=== PATIENT | female | born 1945 | race Caucasian/White ===

== ENCOUNTER 2018-05-24 21:41 | Inpatient (IN) | payer OTHER, MEDICAID ==
[~2018-05-24] VITALS: Ht 165.1 cm; Wt 63.0 kg
[2018-05-24 21:46] VITALS: BP 121/70
[2018-05-24] MEDS ORDERED: LEVAQUIN 500 M500 M2 PO (21:55)
[2018-05-24] MEDS ORDERED: TESSALON PERLE100 MG PO (21:55)
[2018-05-24] MEDS ORDERED: ADVAIR 250-501 EACH INH (22:00)
[2018-05-24] MEDS ORDERED: ASPIR 8181 MG PO (22:22)
[2018-05-24] MEDS ORDERED: ALBUTEROL2.5 MG/31 INH (22:22)
[2018-05-24] MEDS ORDERED: CARVEDILOL3.125 MG PO (22:23)
[2018-05-24] MEDS ORDERED: CEFUROXIME250 MG PO (22:28)
[2018-05-24] MEDS ORDERED: BENTYL 10 MG CA10 M1 PO (22:28)
[2018-05-24] MEDS ORDERED: DOXYCYCLINE 10100 MG PO (22:29)
[2018-05-24 22:30] LABS: ABSOLUTE BASOPHILS 0.1 thou/uL (0.0-0.2); ABSOLUTE EOSINOPHILS 0.2 thou/uL (0.0-0.7); ABSOLUTE LYMPHOCYTES 1.4 thou/uL (0.8-5.3); ABSOLUTE MONOCYTES 0.4 thou/uL (0.0-1.2); BASOPHILS 0.9 %; EOSINOPHILS 2.6 %; HEMATOCRIT 41.2 % (37.0-47.0); LYMPHOCYTES 23.5 %; MCH 29.9 pg (26.0-34.0); MCHC 33.9 g/dL (28.0-37.0); MCV 88.3 fL (80.0-100.0); MONOCYTES 6.9 %; MPV 8.8 fl. (7.2-11.1); NUCLEATED RBCS 0 /100WBC; PLATELET COUNT* 212 thou/uL (150-400); POLYS 66.1 %; RBC 4.67 mil/uL (4.20-5.00); RDW-CV 14.6 % (10.5-14.5)
[2018-05-24] MEDS ORDERED: CYMBALTA30 MG PO (22:30)
[2018-05-24] MEDS ORDERED: DULOXETINE HCL60 MG PO (22:31)
[2018-05-24 22:37] LABS: CALCIUM 8.9 mg/dL (8.5-10.1); CREATININE 0.9 mg/dL (0.6-1.3); POTASSIUM 3.1 mmol/L (3.5-5.1)
[2018-05-24] MEDS ORDERED: METFORMIN HCL500 MG PO (22:38)
[2018-05-24] MEDS ORDERED: ESKALITH CR450 MG PO (22:38)
[2018-05-24] MEDS ORDERED: PRILOSEC 10MG C10 MG PO (22:39)
[2018-05-24] MEDS ORDERED: PREDNISONE 10 M10 MG PO (22:40)
[2018-05-24 22:41] LABS: ALBUMIN 3.4 g/dL (3.4-5.0); MAGNESIUM 1.6 mg/dL (1.8-2.4); TOTAL BILIRUBIN 0.4 mg/dL (<0.1-1.0); TOTAL PROTEIN 7.3 g/dL (6.4-8.2)
[2018-05-24] MEDS ORDERED: VENTOLIN HFA 1818 GM INH (22:41)
[2018-05-24] MEDS ORDERED: AMBIEN 5 MG TABL5 M1 PO (22:42)
[2018-05-24 22:47] LABS: BE -0.4 mmol/L (-2 to +3); HCO3 23.1 mmol/L (22.0-26.0); PCO2 34.1 mmHg (35.0-45.0); pH 7.448 (7.340-7.450)
[2018-05-25] VITALS (8 sets, daily range): BP systolic 125–152; BP diastolic 61–77
[2018-05-25 02:41] LABS: CALCIUM 9.2 mg/dL (8.5-10.1); CREATININE 0.8 mg/dL (0.6-1.3); MAGNESIUM 2.6 mg/dL (1.8-2.4); POTASSIUM 3.8 mmol/L (3.5-5.1)
--- NOTE | 2018-05-25 10:06 | EKG ---
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1945 Requested By: Anatoly Guerrero Order Number: [id number] MD: Cj Melgoza Measurements Intervals [place] Rate: 98 P: 81 IN: 154 QRS: 72 QRSD: 124 T: 219 QT: 373 QTc: 477 Interpretive Statements Sinus tachycardia artifact noted Ventricular bigeminy Nonspecific intraventricular conduction delay Repol abnrm, prob ischemia, anterolateral lds Compared to ECG 05/17/2013 12:26:15 Ventricular premature complex(es) now present Possible ischemia now present Sinus rhythm no longer present Electronically Signed On 05-25-2018 10:06:42 CDT by Cj Melgoza [email or web address] <ELECTRONICALLY SIGNED> By: Cj Melgoza MD, [facility] 05/25/18 1006 58 58 Cj Melgoza MD, [facility] /EPI
[2018-05-25 11:44] LABS: APTT 28.4 Seconds (25.0-31.3); INR 1.1; PROTIME 10.9 Seconds (9.20-11.50)
[2018-05-26 04:00] VITALS: BP 123/66
[2018-05-26 05:14] LABS: HEMATOCRIT 35.3 % (37.0-47.0); HEMOGLOBIN 11.9 gm/dL (12.0-15.0); MCH 29.8 pg (26.0-34.0); MCHC 33.6 g/dL (28.0-37.0); MCV 88.7 fL (80.0-100.0); MPV 8.9 fl. (7.2-11.1); RBC 3.98 mil/uL (4.20-5.00); RDW-CV 14.4 % (10.5-14.5); WBC 10.1 thou/uL (4.0-11.0)
[2018-05-26 05:30] LABS: ALBUMIN 2.9 g/dL (3.4-5.0); CALCIUM 9.2 mg/dL (8.5-10.1); CREATININE 0.8 mg/dL (0.6-1.3); MAGNESIUM 2.2 mg/dL (1.8-2.4); POTASSIUM 4.6 mmol/L (3.5-5.1); TOTAL BILIRUBIN 0.2 mg/dL (<0.1-1.0); TOTAL PROTEIN 5.7 g/dL (6.4-8.2)
[2018-05-26 07:41] VITALS: BP 146/71
--- NOTE | 2018-05-26 10:06 | CON ---
[address] [address] CONSULTATION Name: NISHANT VENTURA Room: [address] IN M.R.#: [id number] Admission: 05/24/18 Attend Phys: Maikel Song MD Discharge: Date of : 45 Report #: [id number] THIS REPORT FOR: //name// CC: Maikel Salazar REASON FOR CONSULTATION: Abnormal CT scan, shortness of breath. HISTORY OF PRESENT ILLNESS: This is a 73-year-old female patient with history of COPD, although she is not on oxygen. She continues to smoke. According to her, she smoked for a long time. She presented to the Emergency Department with progressive shortness of breath of 2 days' duration. However, upon further clarification, she told me she had been short of breath for a while, on and off symptoms, waxing and waning. Not long time ago, she was seen at urgent care for similar symptoms. Also, she told me in the last 5 weeks, she was admitted to different hospital with breathing problems. She continues to smoke. In addition to that, she had progressive weakness, cough, mostly dry without sputum production. She has a background history of breast cancer and she underwent lumpectomy 3 years ago. She does not recall the name of the oncologist. She did not receive chemoradiation and she did not follow since then. For the last 1 year, she had been having large lesions on the left side of the breast, also becoming more indurated and have been progressive for the last 1 year. She denied any back pain, fever, but she reported wheezes. She has no nausea or vomiting, no other complaints. PAST MEDICAL HISTORY: History of left breast cancer status post lumpectomy, history of appendectomy, tonsillectomy, gallbladder removal, history of COPD, history of diabetes mellitus, history of anemia, gout, history of depression and reflux. PAST SURGICAL HISTORY: As above. HOME MEDICATIONS: She was finishing actually a course of levofloxacin. She was on Advair, aspirin, albuterol cysteine at home, doxycycline, metformin, omeprazole, and prednisone. ALLERGIES: TYLENOL, DILTIAZEM, HALDOL, LORATADINE, DARVOCET, AND SUDAFED. SOCIAL HISTORY: Continues to smoke around 4-5 cigarettes per day. She told me she smoked all her life. Does not drink alcohol excessively. Does not abuse drugs. REVIEW OF SYSTEMS: Positive for weakness, cough, shortness of breath, sputum production, although rare. She had no diarrhea, no vomiting, no nausea, no urgency. The rest of the review of system was negative. PHYSICAL EXAMINATION: [place] [address] CONSULTATION Name: NISHANT VENTURA Room: [address] IN M.R.#: [id number] Admission: 05/24/18 Attend Phys: Maikel Song MD Discharge: Date of : 45 Report #: [id number] VITAL SIGNS: On examination, she is on room air, O2 saturation more than 90%, pulse rate of 100, afebrile, blood pressure 150/76. HEENT: Head, normocephalic, atraumatic. Pupils are reactive to light. Not pale, no jaundice. External ears look okay and normal. Oral cavity: Moist mucous membranes. NECK: Supple. CHEST: Diminished air movement bilaterally, especially at the right lung base, no definite wheezes. HEART: S1, S2. ABDOMEN: Benign, soft, lax, nontender. EXTREMITIES: Lower extremity, no edema. No rash. BREAST: On examination, the left breast area post-surgical changes noted, but there is an induration also and skin lesions on the breast tissue and surrounding the area with redness. PSYCHIATRIC: Mood and affect slightly anxious. NEUROLOGIC: Moving all 4 extremities spontaneously. No focal weakness. Her chest x-ray showed bilateral interstitial opacities, signs of edema and bilateral pleural effusion. CT of the chest did not show PE, but demonstrated small pulmonary nodules and moderate right-sided pleural effusion and a small left-sided pleural effusion. IMPRESSION: 1. Dyspnea. 2. Chronic obstructive pulmonary disease exacerbation. 3. Abnormal CT scan. 4. Pleural effusion. 5. History of breast cancer. 6. Abnormal breast lesion. PLAN: At this point, the constellation of symptoms and signs with progressive induration and skin changes over the left breast, where she had a breast cancer few years ago, concerning for breast cancer recurrence. I am going to consult Oncology for further evaluation. At the same time, we will sample the pleural fluid from the right side. I did consult IR for help in that regard. We will send for cytology, bacteria and LDH protein in addition to cell count and differential. Meanwhile, she will be treated for COPD exacerbation with scheduled nebulization treatment, antibiotics, steroids. Monitor her oxygen needs. I will defer the glucose management to primary team. Discussed with the patient and the RN. Thank you for the consult. <ELECTRONICALLY SIGNED> By: Niall Contreras MD 05/26/18 1006 1040 [id number] Walters MD /nt
[2018-05-26 12:00] VITALS: BP 133/75
[2018-05-26 15:12] LABS: URINE BILIRUBIN NEGATIVE (Negative); URINE BLOOD NEGATIVE (Negative); URINE CLARITY CLEAR; URINE COLOR YELLOW; URINE GLUCOSE-RANDOM TRACE (Negative); URINE KETONES NEGATIVE (Negative); URINE LEUKOCYTES-REFLEX 1+ (Negative); URINE NITRITE-REFLEX NEGATIVE (Negative); URINE PROTEIN NEGATIVE (Negative); URINE SPECIFIC GRAVITY <= 1.005 (1.005-1.030); URINE UROBILINOGEN 0.2 E.U./dl (0.2-1.0)
[2018-05-26 15:19] LABS: MUCUS None Seen strn/LPF (None Seen); SQUAMOUS >10 Many /LPF (0-3)
[2018-05-26 15:20] LABS: CASTS None Seen /LPF (None Seen); CRYSTALS None Seen /LPF (None Seen); URINE RBC None Seen /HPF (0-2); URINE WBC-REFLEX 0-5 Rare /HPF (0-5)
[2018-05-26 16:00] VITALS: BP 131/74; BP 167/90
[2018-05-26 20:00] VITALS: BP 131/74
[2018-05-26 23:32] VITALS: BP 117/54
[2018-05-27 03:49] VITALS: BP 125/67
[2018-05-27 08:00] VITALS: BP 139/61
[2018-05-27 11:50] VITALS: BP 174/77
[2018-05-27 13:08] LABS: BODY FLUID LDH 143 IU/L (()); BODY FLUID PROTEIN 2.7 g/dL (())
[2018-05-27 14:00] VITALS: BP 115/65
[2018-05-27 20:00] VITALS: BP 125/62
[2018-05-28] VITALS: BP 148/75
[2018-05-28 04:00] VITALS: BP 141/74
[2018-05-28 08:00] VITALS: BP 140/50
[2018-05-28 12:03] VITALS: BP 137/64
[2018-05-28 13:54] LABS: SOURCE THORACENTESIS
[2018-05-28 15:56] VITALS: BP 126/39
[2018-05-28 19:54] VITALS: BP 143/70
[2018-05-29] VITALS (7 sets, daily range): BP systolic 126–172; BP diastolic 59–83
[2018-05-30] VITALS (7 sets, daily range): BP systolic 135–153; BP diastolic 60–74
[2018-05-30 05:07] LABS: HEMATOCRIT 37.7 % (37.0-47.0); HEMOGLOBIN 12.5 gm/dL (12.0-15.0); MCV 90.8 fL (80.0-100.0); MPV 9.1 fl. (7.2-11.1); RBC 4.16 mil/uL (4.20-5.00); RDW-CV 14.1 % (10.5-14.5); WBC 6.4 thou/uL (4.0-11.0)
[2018-05-30 05:33] LABS: CALCIUM 8.6 mg/dL (8.5-10.1); CREATININE 1.2 mg/dL (0.6-1.3); POTASSIUM 4.6 mmol/L (3.5-5.1)
[2018-05-30] MEDS ORDERED: PREDNISONE 10 M10 MG PO (12:08)
[2018-05-30] MEDS ORDERED: IPRAT-ALBUT 0.5-3 ML INH (12:08)
[2018-05-30] MEDS ORDERED: ADVAIR HFA 230M12 GM INH (12:36)
--- NOTE | 2018-07-05 11:08 | PATH ---
[address] [address] PATHOLOGY RPT PROCEDURE Name: NISHANT VENTURA Room: [address] IN .R.#: [id number] Admission: 05/24/18 Date of : 45 Discharge: 05/30/18 Report #: [id number] Path Case #: [id number] Note [facility] Accession Number: [id number] TESTS RESULT FLAG UNITS REF RANGE LAB Clinician Provided Cytology Information No. of containers..01 Other (Miscellaneous) Source: [A] 01 PLEURAL DIAGNOSIS: [A] 02 PLEURAL, SIDE NOT SPECIFIED. POSITIVE FOR MALIGNANT CELLS. ADENOCARCINOMA, COMPATIBLE WITH BREAST DUCTAL PRIMARY. THIS INTERPRETATION INCLUDES EVALUATION OF A CELL BLOCK. SEE COMMENT. COMMENT:ABUNDANT MALIGNANT CELLS ARE PRESENT SINGLY AND IN SMALL GLANDULAR GROUPS. 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 REVIEWED WITH DR. TYSON REYES, WHO AGREES WITH THE DIAGNOSIS. DR. MCGINNIS'S NURSE, BESSY NOTIFIED OF PRELIMINARY FINDINGS BY DR. THADDEUS WU AT APPROXIMATELY 1400 ON 05/27/2018. Addendum: 02 Special studies report received from [facility], [address] [place] [address], [address], [place], [address], on case [id number], labeled with their number [id number], dated 06/25/2018. . Breast/Prognostic Marker Analysis . Specimen Site: Pleural Fluid (Thoracentesis), Adenocarcinoma, Compatible with Breast Ductal Primary Specimen ID #: [id number] . HER2 Not Over-Expressed Score: 1+ Analysis: Manual Comments: Scoring is based on relatively few scattered malignant cells/cell clusters. Consider repeat testing on a more cellular specimen, as clinically indicated. . Time to Fixation (Cold Ischemic Time): Not Provided Duration of Fixation: Not Provided Type of Fixative: [place] [address] PATHOLOGY RPT PROCEDURE Name: NISHANT VENTURA Room: [address] IN [facility]#: [id number] Admission: 05/24/18 Date of : 45 Discharge: 05/30/18 Report #: [id number] Path Case #: [id number] Fixative Disclaimer: Fixation was either not indicated or other than 10% neutral buffered formalin. Results should be interpreted accordingly. . at [facility]. Jewel Novoa M.D. Pathologist . . Methodology: The HER2 Receptor protein expression is analyzed using the Graford HER2 rabbit monoclonal antibody (clone [id number]). This assay is used for diagnostic determination of the HER2 protein over-expression in paraffin embedded, formalin fixed breast cancer tissue on the Graford Benchmark. The specimen is processed using a polymer detection system. The membrane staining of the tumor is determined either by manual score or image analysis. This antibody is intended for in vitro diagnostic use. The score is reported as per package insert; 0, 1+, 2+, and 3+. This test is used for clinical purposes. . Intended Use: This antibody is intended for in vitro diagnostic (IVD) use. HER2 (4B5) is a rabbit monoclonal antibody intended for the semi-quantitative detection of HER2 antigen in sections of formalin-fixed, paraffin embedded normal and neoplastic tissue. . Disclaimer: This Test was performed by [facility]. at [address] [place] [address], [address]. . [facility] is a business unit of [employer]. a wholly-owned subsidiary of [employer]. . This assay has not been validated on decalcified tissues. Results should be interpreted with caution if this specimen was decalcified given the likelihood of false negativity on decalcified specimens. . Any image(s) that accompany this report is/are a quality assurance representative image(s) only and should not be used to render a diagnosis. . This interpretation is contingent on the specimen and the clinical information received. . For any special tests/stains performed, known positive cells or tissues are tested with each marker and examined to ensure positivity. Positive and negative internal controls, if present, react appropriately. [facility] [address] [place] [address] PATHOLOGY RPT PROCEDURE Name: NISHANT VENTURA Room: [address] IN [place].#: [id number] Admission: 05/24/18 Date of : 45 Discharge: 05/30/18 Report #: [id number] Path Case #: [id number] . This analysis is an adjunct to the evaluation of the referring physician and does not represent a final diagnosis. . The immunohistochemistry tests performed at [facility]. were validated on tissue fixed in 10% neutral buffered formalin. The performance characteristics of the tests performed on tissue processed in other fixatives is not known. . HER2 testing at [facility], [facility] is performed in compliance with the 2013 updated ASCO/CAP Clinical Practice Guidelines and Recommendations for HER2 testing in Breast Cancer. If the result is EQUIVOCAL (2+), it must be confirmed by an alternative assay such as FISH or Dual SCOTTIE. REF: Barbara POWERS, et al. Recommendations for human epidermal growth factor receptor 2 testing in breast cancer: [place] Society of Clinical Oncology/College of Haitian pathologists Clinical Practice Guideline Update. J Clin Oncol. 2013 Jun 30;31(31):9290-1609. . HER2 and ER/ME ASCO/CAP guidelines require fixation in neutral buffered formalin for a minimum of 6 and a maximum of 72 hours. Fixation times less than 6 hours may not adequately preserve cell proteins. Fixation times longer than 72 hours may cause excess cross-linking of proteins reducing the antigen available for staining. Either scenario can cause reduced staining; hence false negative results are possible and should be considered for these situations if the HER2 IHC score is less than 3+ or ER or ME is negative (no staining or <1% positive). It is recommended that specimens fixed longer than 72 hours with HER2 IHC scores less than 3+ be confirmed by HER2 FISH or Dual SCOTTIE. The time from biopsy/excision to fixation in formalin (cold ischemic time) must be less than 1 hour. Time to fixation (cold ischemic time) greater than 1 hour should be interpreted with caution. HER2 testing, mainly HER2 by FISH, is particularly vulnerable since excessive cold ischemic time results in preferential loss of HER2 probe signals that may lead to false negative results. . SCORE STAINING PATTERN IN TUMOR CELLS INTERPRETATION RESULTS 0 No staining observed or incomplete, faint membrane staining in less than or equal to 10% of tumor cells. Negative 1+ Incomplete, faint membrane staining in greater than 10% of tumor cells. Negative 2+ Incomplete and/or weak/moderate circumferential membrane staining in greater than 10% of the invasive tumor cells or complete, circumferential, intense alternative assay staining in less than or equal to 10% of invasive tumor cells. Equivocal* *Must be confirmed [place] [address] PATHOLOGY RPT PROCEDURE Name: NISHANT VENTURA Room: [address] IN [facility].#: [id number] Admission: 05/24/18 Date of : 45 Discharge: 05/30/18 Report #: [id number] Path Case #: [id number] (IHC/FISH/Dual SCOTTIE) 3+ Intense, complete membrane staining in greater than 10% of tumor cells. Positive . A complete copy of the report is on file. . Professional and Technical services performed by [facility]. at [address], [facility] [address], [place] [address]. . (AMJ 06/27/2018) AZJ/06/27/2018 Addendum Electronically Signed by Conor Caba MD, Pathologist Signed out by: 02 Conor Caba MD, Pathologist NPI- [id number] Performed by: 01 Brian Padilla, Mc Kay Stitcher ([facility]) Gross description: 01 50ML, YELLOW, CLOUDY /LCS FLAG LEGEND: L-Low Normal,H-High Normal,LL-Alert Low,HH-Alert High <-Panic Low,>-Panic High,A-Abnormal,AA-Critical Abnormal Performed at: [address] [place] [address] Nithin Adhikari MD, [address] [place] [address] [facility], [place] [address] Conor Caba MD, Specimen Comment: A courtesy copy of this report has been sent to Specimen Comment: [phone]. Specimen Comment: Report sent to Performed at: [address] [place] [address] [address], [place], [place] [id number] MD Nithin Adhikari MD Phone: [phone]
== END 2018-05-30 13:20 | disposition home health service (06) | DRG 180 ==
LOC: M.ERS 21:41 → M.2W 23:44 → M.TBA-ER 23:44 → M.2W 23:48
PROVIDERS: Internal Medicine; Personal Emergency Response Attendant; ADMIT Internal Medicine
PROC: 0W993ZZ Drainage of Right Pleural Cavity, Percutaneous Approach (ICD-10-PCS; principal; 2018-05-25)
DX: C78.02 Secondary malignant neoplasm of left lung (principal); J96.21 Acute and chronic respiratory failure with hypoxia; J15.9 Unspecified bacterial pneumonia; J91.0 Malignant pleural effusion; J44.0 Chronic obstructive pulmonary disease with (acute) lower respiratory infection; C78.01 Secondary malignant neoplasm of right lung; M10.9 Gout, unspecified; F32.9 Major depressive disorder, single episode, unspecified; K21.9 Gastro-esophageal reflux disease without esophagitis; E83.42 Hypomagnesemia; E11.65 Type 2 diabetes mellitus with hyperglycemia; F17.210 Nicotine dependence, cigarettes, uncomplicated; C50.912 Malignant neoplasm of unspecified site of left female breast; Z85.3 Personal history of malignant neoplasm of breast; Z90.49 Acquired absence of other specified parts of digestive tract; Z88.8 Allergy status to other drugs, medicaments and biological substances; Z79.82 Long term (current) use of aspirin; Z79.899 Other long term (current) drug therapy

== ENCOUNTER 2018-06-04 21:43 | Inpatient (IN) | payer OTHER, MEDICAID ==
[~2018-06-04] VITALS: Ht 165.1 cm; Wt 65.8 kg
[~2018-06-04 21:43] MED LIST: ADVAIR 250-501 EACH INH; ADVAIR HFA 230M12 GM INH; ALBUTEROL2.5 MG/31 INH; AMBIEN 5 MG TABL5 M1 PO; ASPIR 8181 MG PO; BENTYL 10 MG CA10 M1 PO; CARVEDILOL3.125 MG PO; CEFUROXIME250 MG PO; CYMBALTA30 MG PO; DOXYCYCLINE 10100 MG PO; DULOXETINE HCL60 MG PO; ESKALITH CR450 MG PO; IPRAT-ALBUT 0.5-3 ML INH; LEVAQUIN 500 M500 M2 PO; METFORMIN HCL500 MG PO; PREDNISONE 10 M10 MG PO; PRILOSEC 10MG C10 MG PO; TESSALON PERLE100 MG PO; VENTOLIN HFA 1818 GM INH
[2018-06-04 21:44] VITALS: BP 135/63
[2018-06-04] MEDS ORDERED: GLYBURIDE 2.52.5 MG PO (21:56)
[2018-06-04 22:12] LABS: ABSOLUTE EOSINOPHILS 0.2 thou/uL (0.0-0.7); ABSOLUTE LYMPHOCYTES 1.2 thou/uL (0.8-5.3); ABSOLUTE MONOCYTES 0.6 thou/uL (0.0-1.2); ABSOLUTE NEUTROPHILS 4.4 thou/uL (1.6-8.1); BASOPHILS 0.4 %; EOSINOPHILS 2.9 %; HEMATOCRIT 39.9 % (37.0-47.0); HEMOGLOBIN 13.2 gm/dL (12.0-15.0); LYMPHOCYTES 18.4 %; MCH 29.5 pg (26.0-34.0); MCHC 33.1 g/dL (28.0-37.0); MCV 89.2 fL (80.0-100.0); MONOCYTES 9.7 %; MPV 8.3 fl. (7.2-11.1); NUCLEATED RBCS 0 /100WBC; PLATELET COUNT* 188 thou/uL (150-400); POLYS 68.6 %; RBC 4.47 mil/uL (4.20-5.00); RDW-CV 14.6 % (10.5-14.5); WBC 6.4 thou/uL (4.0-11.0)
[2018-06-04 22:17] LABS: CALCIUM 8.6 mg/dL (8.5-10.1); CREATININE 0.9 mg/dL (0.6-1.3); POTASSIUM 3.7 mmol/L (3.5-5.1)
[2018-06-04 22:21] LABS: TOTAL BILIRUBIN 0.5 mg/dL (<0.1-1.0); TOTAL PROTEIN 6.3 g/dL (6.4-8.2)
--- NOTE | 2018-06-04 23:20 | NUR ---
PT HAVING COUGHING FITS. STATES SHE HAS BEEN COUGHING UP YELLOW THICK PHLEGM ALL DAY. PT ALSO TEARFUL AND TOLD THIS NURSE THAT TODAY WAS THE 16TH ANNIVERSARY OF HER DAUGHTERS MURDER AND IT IS HITTING HER HARD THIS YEAR.
--- NOTE | 2018-06-05 00:13 | NUR ---
TRANSPORT ANALYST NOTIFIED THAT PATIENT IS NO LONGER HAVING COUGHING FIT AND THAT THE DOCTOR SAID TO TRY THE CT AGAIN. SHE STATED SHE WILL BE HERE SHORTLY
[2018-06-05 02:00] VITALS: BP 100/52
[2018-06-05 02:07] VITALS: BP 144/72
--- NOTE | 2018-06-05 05:01 | NUR ---
PATIENT ADMITTED TO ROOM 113 FROM THE ER AT APPROXIMATELY 0205. VSS ON 2L 02 VIA NASAL CANNULA. NO C/O PAIN. PATIENT ORIENTED TO ROOM AND POLICIES. FALL EDUCATION GIVEN AND FALL AGREEMENT SIGNED. PATIENT VERBALIZED UNDERSTANDING. ASSESSMENT CHARTED. IV IN RIGHT AC-NS STARTED AT 125ML/HR. PATIENT IS UP WITH ASSIST X 1 TO THE BATHROOM AND VERY STEADY ON HER FEET. PATIENT INSTRUCTED TO USE CALL LIGHT WHEN NEEDING ASSISTANCE. HOURLY ROUNDS MADE. WILL CONTINUE WITH PLAN OF CARE AND NURSING TO MONITOR.
[2018-06-05 08:45] VITALS: BP 114/58
--- NOTE | 2018-06-05 11:37 | EKG ---
[place] [address] ELECTROCARDIOGRAM REPORT Name: NISHANT VENTURA Room: [address] ADM IN M.R.#: [id number] Admission: 06/04/18 Attend Phys: Baljeet Amezquita, Discharge: Date of : 45 Report #: [id number] THIS REPORT FOR: //name// [facility] ED Test Date: 2018-06-04 Test Time: 22:03:22 Pat Name: NISHANT VENTURA Department: Room: [facility] Gender: F Stna: PANCHITO : 1945 Requested By: Gay Zaragoza Order Number: [id number] MD: Saul Wu Measurements Intervals [place] Rate: 107 P: 90 CO: 137 QRS: 75 QRSD: 101 T: 227 QT: 349 QTc: 466 Interpretive Statements Sinus tachycardia LVH w/ repol abnormalities, possible ischemia Compared to ECG 05/24/2018 21:59:26 Ventricular premature complex(es) no longer present Intraventricular conduction delay no longer present Early repolarization no longer present Possible ischemia still present Electronically Signed On 06-05-2018 11:37:36 CDT by Saul Wu [email or web address] <ELECTRONICALLY SIGNED> By: Saul Wu MD, FACC 06/05/18 1137 02 02 Saul Wu MD, FACC /EPI
[2018-06-05 16:28] VITALS: BP 145/48
--- NOTE | 2018-06-05 17:32 | NUR ---
PT VSS THIS SHIFT PT LUNGS ARE WHEEZY AND PT IS USING 2L O2 PER NC. PT TOLERATING DIET WITH NO C/O N/V AT THIS TIME. PT HAS COUGH AND HAS BEEN PRESCRIBED STERIODS AND MUCINEX THIS SHIFT. PT HAS INCREASED BLOOD GLUCOSE AND DR AYERS GAVE A VERBAL ORDER FOR MODERATE DOSE SLIDING SCALE, ORDER SENT TO PHARMACY. WILL CONTINUE TO ASSESS AND MONITOR.
[2018-06-05 21:20] VITALS: BP 186/77
[2018-06-06] VITALS: BP 127/59
[2018-06-06 04:33] LABS: HEMATOCRIT 36.9 % (37.0-47.0); HEMOGLOBIN 12.3 gm/dL (12.0-15.0); MCH 29.6 pg (26.0-34.0); MCHC 33.4 g/dL (28.0-37.0); MCV 88.9 fL (80.0-100.0); MPV 8.5 fl. (7.2-11.1); RBC 4.15 mil/uL (4.20-5.00); WBC 7.5 thou/uL (4.0-11.0)
[2018-06-06 04:48] LABS: CALCIUM 9.3 mg/dL (8.5-10.1); CREATININE 0.8 mg/dL (0.6-1.3); POTASSIUM 4.4 mmol/L (3.5-5.1)
[2018-06-06 07:45] VITALS: BP 136/67
--- NOTE | 2018-06-06 15:33 | NUR ---
SPOKE WITH PT. SHE SEEMED ALERT AND ORIENTED. LIVES ALONE IN AN APT. SHE SAID SHE HAS 7 CATS. SHE THINKS THE REASON SHE HAD TO COME BACK INTO THE HOSPITAL WAS, SHE HAD A FRIEND THAT WAS GOING TO CARE FOR HER CATS WHEN SHE WAS IN THE LAST TIME. SHE EVIDENTLY DID NOT COME TO TAKE CARE OF THEM BECAUSE WHEN SHE GOT HOME, THERE WAS CAT FECES ALL OVER THE PLACE, INCLUDING HER BED, ALL THE LITER BOXES AND THE STENTCH WAS TERRIBLE. SHE HAD TO CLEAN THIS ALL UP AND DIDN'T HAVE A MASK TO WEAR. SHE HAS 4 FRIENDS THAT TAKE HER TO THE STORE OR GET HER GROCERIES. SHE DOES NOT HAVE A CAR. SHE IS ABLE TO COOK, BATHE AND CLEAN INDEPENDENTLY. SHE HAS A CANE BUT SAID SHE DOESN'T HAVE TO USE IT. DOES NOT HAVE O2. SHE WAS UNABLE TO GET HER MEDICATIONS BECAUSE THEY HAD TO CHECK WITH THE ON ONE OF THE DRUGS,SO THEY WERE NOT READY YET AND SHE COULDN'T GET A RIDE BACK TO THE PHARMACY. SHE SAID HER PHARMACY DOES NOT DELIVER. A DIFFERENT FRIEND ,GRAY ,IS TAKING CARE OF HER CATS THIS TIME WHILE SHE IS IN THE HOSPITAL.
[2018-06-06 16:00] VITALS: BP 140/58
[2018-06-06 20:00] VITALS: BP 187/77
--- NOTE | 2018-06-06 21:57 | NUR ---
PT ALERT AND ORIENTED X 4. DENIES NAUSEA OR PAIN. OXYGEN IN USE AT 2L/NC. IVF INFUSING AT 125 ML/HR. UP WITH SBA X 1. PT INITIALLY REFUSED MORNING MEDS. FLU VACCINE GIVEN. HOURLY ROUNDS MAINTAINED. WILL USE CALL LIGHT FOR ASSISTANCE. CALL LIGHT WITHIN REACH. ALARMS ON BED IN USE. ONCOLOGY PHYSICIAN IN @ 1600 FOR CONSULT. NURSING TO CONTINUE TO MONITOR.
[2018-06-07 03:30] VITALS: BP 162/87
--- NOTE | 2018-06-07 05:14 | NUR ---
PATIENT HAS SLEPT OFF AND ON DURING THE NIGHT WITH PERIODS OF RESTLESSNESS. VSS ON 2L 02 VIA NASAL CANNULA ALTHOUGH BP ELEVATED. MEDICATIONS GIVEN ORDERED AND CHARTED. NO C/O PAIN. ASSESSMENT CHARTED. PATIENT WANTING TO EAT OFTEN DURING THE SHIFT. PATIENT EDUCATED AND ENCOURAGED TO NOT EAT SO MUCH PUDDING AND TO NOT DRINK SO MUCH SODA D/T ELEVATED BLOOD SUGAR, BUT PATIENT STILL REQUESTING TO HAVE PUDDING AND SNACKS. IV IN RIGHT WRIST-NS @ 125ML/HR. PATIENT INSTRUCTED TO USE CALL LIGHT WHEN NEEDING ASSISTANCE. HOURLY ROUNDS MADE. WILL CONTINUE WITH PLAN OF CARE AND NURSING TO MONITOR.
[2018-06-07 07:45] VITALS: BP 191/97
[2018-06-07 12:55] VITALS: BP 148/67
--- NOTE | 2018-06-07 15:44 | NUR ---
SKIDDER OPERATOR SPOKE TO THE PATIENT TO DISCUSS PLANNING NEEDS AND SKILLED AT D/C. PATIENT INFORMS THAT SHE IS OPEN TO SKILLED AT D/C, HOWEVER SHE WOULD LIKE TIME TO THINNK ABOUT IT SHE WILL NEED TO FIND SOMEONE TO TAKE CARE OF HER CATS. D/C DOCTOR OF OSTEOPATHY PROVIDED PATIENT WILL A SNF LIST IN-NETWORK WITH HER INSURANCE. CM TO F/U WITH PATIENT TOMORROW TO DISCUSS HER DECISION. CM WILL REMAIN AVAILABLE TO ASSIST AND FOLLOW NEEDED.
[2018-06-07 16:11] VITALS: BP 178/95
[2018-06-07 19:45] VITALS: BP 174/79
--- NOTE | 2018-06-07 20:19 | NUR ---
PT ALERT AND ORIENTED X 4. DENIED NAUSEA AND PAIN. RESPIRATIONS @ 24. PT REFUSED ORDERED CHEMO MEDICATION. GIVEN MEDICATION INFORMATION REQUESTED. CONTINUED TO REFUSE MEDICATION DURING THE DAY. ONCOLOGY PHYSICIAN IN @ 1030. OXYGEN ON @ 2 L/NC. PT HAVING INCREASED SHORTNESS OF BREATH IN AFTERNOON. IV FLUIDS DISCONTINUED. LASIX 20MG IV ADMINISTERED. ALARM IN USE ON BED. PT UP WITH SBA X 1. HOURLY ROUNDS MAINTAINED. WILL USE CALL LIGHT FOR ASSISTANCE. CALL LIGHT WITHIN REACH.
--- NOTE | 2018-06-08 05:04 | NUR ---
PT SLEPT ON AND OFF THIS SHIFT. ASSESSMENT DOCUMENTED. MEDS GIVEN PER E-OCT. IV PATENT. PAIN MEDS GIVEN FOR BACK PAIN PER E-OCT. O2 ON, PT USED BSC THIS SHIFT PATIENT GOT SHORT OF AIR WALKING TO BATHROOM. WILL CONTINUE WITH PLAN OF CARE.
[2018-06-08 07:40] VITALS: BP 182/93
[2018-06-08 17:20] VITALS: BP 160/81
--- NOTE | 2018-06-08 18:37 | NUR ---
PT ALERT AND ORIENTED X 4. DENIES PAIN AND NAUSEA. OXYGEN @ 2 L/NC. PT FREQUENTLY BECOMES SHORT OF BREATHE. UP WITH SBA. PT REFUSED TO TAKE CHEMO MEDICATION TODAY. HOURLY ROUNDS MAINTAINED. WILL USE CALL LIGHT FOR ASSISTANCE. NURSING TO CONTINUE TO MONITOR.
[2018-06-08 19:45] VITALS: BP 167/88
[2018-06-09] VITALS: BP 121/55; BP 166/81
[2018-06-09 08:00] VITALS: BP 150/66
--- NOTE | 2018-06-09 11:58 | NUR ---
CHAINSTITCH BINDER SPOKE TO THE PATIENT TO DISCUSS DISCHARGE PLANNING NEEDS, AND SKILLED AT D/C. PATIENT INFORMS THAT SHE IS NOW OPEN TO SKILLED AT D/C AND WOULD LIKE TO GO TO [facility]. D/C AGENCY SERVICE REPRESENTATIVE SPOKE TO KIM WITH [facility] TO INFORM OF THE REFERRAL, AND FAXED THE PATIENT CLINICAL INFO. KIM TO RETURN CALL TO INFORM OF ABILIY TO ACCEPT PATIENT AT D/C. CM WILL REMAIN AVAILABLE TO ASSIST AND FOLLLOW NEEDED.
[2018-06-09 16:00] VITALS: BP 162/74
--- NOTE | 2018-06-09 19:44 | NUR ---
LUNGS CONT TO BE COARSE, NONPROD COUGH NOTED, CONT TO KAYODE NEB TX, COMPLIANT WITH CARES, UP TO BSC, CONTINENT, VOICES NEEDS APPROP, ANTICIPATE SKILLED TRANSFER TOMORROW, CARE PLAN REVIEWED WITH PATIENT, DENIES QUESTIONS, CALL LIGHT IN REACH, CONT POC.
[2018-06-09 20:15] VITALS: BP 126/66
--- NOTE | 2018-06-10 04:13 | NUR ---
PATIENT REMAINS ALERT AND ORIENTED. IV SALINE LOCKED. AMBULATES WITH SBA, WALKER, AND O2. O2 AT 4L. SAT 97%.SOB WITH EXERTION. PRODUCTIVE COUGH WITH GREEN SPUTUM. BREATHING TREATMENTS ORDERED. TESSALON PERLE FOR COUGH. PATIENT REQUESTS MULTIPLE SNACKS. DESPITE EDUCATION ABOUT BLOOD GLUCOSE CONTROL. IMPULSIVE AT TIMES. VOIDING PER TOILET. REFUSED PRN MIRILAX, WANTS A SOFTENER IN AM. LAST BM 3DAYS AGO. BED ALARM IN USE. CALL LIGHT WITHIN REACH. WILL CONTINUE TO MONITOR.
--- NOTE | 2018-06-10 06:25 | NUR ---
HOURLY ROUNDING COMPLETED
--- NOTE | 2018-06-10 06:54 | NUR ---
PATIENT SPIT 0600/0700 MEDS IN TRASH CAN. STATING THEY TASTED BAD.
[2018-06-10 08:30] VITALS: BP 209/90
--- NOTE | 2018-06-10 12:31 | NUR ---
PT.FOLLOW UP COMPLETE. FAXED PT/OT EVALS AND FOLLOW UPS TO KIM/GUILHERME OCHOA TO FORWARD ON TO INSURANCE FOR AUTHORIZATION. NOTIFIED KIM THAT INFORMATION WAS BEING FAXED.
--- NOTE | 2018-06-10 13:51 | NUR ---
Nutrition: Pt assessed for LOS. Admitted with COPD exac. H/o COPD, DM, STEMI. BG in 300s, albumin 3. Pt on Regular diet. RX: insulin, glipizide, metformin. Possible discharge to SNF. Wt: 144#, stable. Excessive CHO intake R/T diet order AEB no CHO control on diet. RD to restrict diet to CHO controlled. GOALS: better BG control. Mild risk.
--- NOTE | 2018-06-10 14:28 | NUR ---
SPOKE WITH JONNATHAN. SHE SAID THEY CAN ACCEPT PT.TO A SKILLED BED TODAY AND HAVE OBTAINED INSURANCE AUTHORIZATION. SHE WILL ARRANGE [facility] FOR 1600. NURSING TO CALL REPORT. CHART COPIED TO GO WITH PT. INFORMED PT.OF DISCHARGE TIME.
[2018-06-10 16:04] VITALS: BP 170/81
--- NOTE | 2018-06-10 19:29 | NUR ---
PATIENT REMAINED ALERT AND ORIENTED X'S 3. VITAL SIGNS AND SPO2 STABLE. IV INFILTRATED, NO CURRENT IV ACCESS. TOLERATED DIET, NO NAUSEA AND VOMITING. RECIEVED BREATHING TREATMENTS. BLOOD GLUCOSE IS NOT WELL CONTROLLED. NEW PO BG MEDS STARTED. COMPLETED HOURLY ROUNDING. CALL LIGHT WITHIN REACH. WILL CONTINUE TO MONITOR.
[2018-06-10 21:35] VITALS: BP 147/85
--- NOTE | 2018-06-11 06:53 | NUR ---
PATIENT ALERT AND ORIENTED X 4, FORGETFUL AT TIMES. VITALS STABLE. ON 2L OF OXYGEN. REMINDED SEVERAL TIMES DURING THE NIGHT NOT TO TAKE OXYGEN OFF. SOB WITH EXERTION. SCHEDULED BREATHING TREATMENTS GIVEN. PRODUCTIVE COUGH. UP WITH ASSIST X 1 TO BATHROOM. BED ALARM IN USE. PATIENT DOES NOT USE CALL LIGHT APPROPRIATELY. HOURLY ROUNDS. CALL LIGHT IN REACH. NURSING WILL CONTINUE TO MONITOR.
[2018-06-11 08:24] VITALS: BP 136/72
--- NOTE | 2018-06-11 10:13 | NUR ---
PATIENT REFUSED AM MEDS STATING SHE WAS TOO TIRED AND TOO SHORT OF BREATH. PRN TREATMENT GIVEN BY RT. PATIENT NOW SLEEPING.
--- NOTE | 2018-06-11 11:40 | NUR ---
PATIENT AGREED TO TAKE METFORMIN AND GLIPIZIDE AT THIS TIME. BLOOD GLUCOSE 251-INSULIN GIVEN. WHEN THIS NURSE RETURNED WITH METFORMIN AND GLIPIZIDE PATIENT WAS ASLEEP AND REFUSED TO TAKE THE MEDS.
--- NOTE | 2018-06-11 13:10 | NUR ---
PATIENT TOOK ORAL HYPOGLYCEMICS AT THIS TIME AFTER WAKING UP FROM NAP.
--- NOTE | 2018-06-11 15:38 | NUR ---
PATIENT REQUESTED COLACE AND SUPPOSITORY BOTH ORDERED AND GIVEN
--- NOTE | 2018-06-11 15:41 | NUR ---
PATIENT PLACED ON EVERY 2 HOUR TURNS THIS SHIFT DUE TO INACTIVITY AND LONG PERIODS OF SLEEP. PATIENT WILL REPOSITION TOLERATED- DUE TO BREATHING SHE REFUSES AT TIMES. BLANCHABLE REDNESS NOTED TO COCCYX/BUTTOCKS THIS SHIFT.
[2018-06-11 15:46] VITALS: BP 144/62
--- NOTE | 2018-06-11 16:36 | NUR ---
PATIENT REMAINS ALERT AND ORIENTED, IMPULSIVE. DENIES PAIN. NO IV ACCESS. O2 2L.SAT 95-96%. SOB WITH EXERTION. BREATHING TREATMENTS SCHEDULED AND PRN. REFUSED SEVERAL MEDS THROUGHOUT SHIFT, INCLUDING ORAL CHEMO. PATIENT DID AGREE TO TAKE HYPOGLYCEMICS SHE LOVES TO SNACK ALL DAY. SLEEPING MORE TODAY THAN USUAL. PATIENT GRATEFUL FOR REST BUT THINKS SHE IS TOO SLEEPY SO SHE REFUSED THE ATIVAN. SUPPOSITORY AND COLACE THIS AFTERNOON- SMALL BM. VOIDING PER BSC OR TOILET. COCCYX AND BUTTOCKS RED-BLANCHABLE. PATIENT PLACED BACK ON Q2H TURNS BUT SHE WILL REFUSE FREQUENTLY DUE TO BREATHING. EDUCATION GIVEN. BED ALARM IN USE. REFUSED TO SIT IN CHAIR. WAFFLE CUSHION ORDERED. CALL LIGHT WITHIN REACH. WILL CONTINUE TO MONITOR.
--- NOTE | 2018-06-11 17:31 | NUR ---
PATIENT REQUESTING FLEETS ENEMA. DID HAVE SMALL BM TODAY, BUT WANTS AN ENEMA THIS EVENING SHE IS STILL UNCOMFORTABLE.
--- NOTE | 2018-06-11 18:39 | NUR ---
HOURLY ROUNDING COMPLETED
[2018-06-11 20:40] VITALS: BP 124/63
--- NOTE | 2018-06-12 05:07 | NUR ---
PATIENT ALERT AND ORIENTED X 4, FORGETFUL AT TIMES. ON 2L OF OXYGEN. REMINDED SEVERAL TIMES TO KEEP OXYGEN ON. SOB ON EXERTION, PATIENT STAES GETTING BETTER. IMPULSIVE. BED ALARM IN USE. PATIENT DOES NOT USE CALL LIGHT APPROPRIATELY. REPOSITIONED THROUGH THE NIGHT. BREATHING TREATMENTS ORDERED. ATE SEVERAL SNACKS DURING THE NIGHT. HOURLY ROUNDS. BED ALARM IN USE. NURSING WILL CONTINUE TO MONITOR.
[2018-06-12 07:30] VITALS: BP 138/66
--- NOTE | 2018-06-12 12:01 | NUR ---
PATIENT CONTINUES TO REFUSE AM MEDS. NURSE HAS MADE SEVERAL ATTEMPT THIS AM. PATIENT REQUESTING TO WAIT FOR LUNCH NOW. GLIPIZIDE SCHEDULE OFF DUE TO PATIENT REFUSING.
--- NOTE | 2018-06-12 12:56 | NUR ---
PATIENT FINALLY COMPLETED TAKING MORNING MEDS AT THIS TIME.
--- NOTE | 2018-06-12 15:00 | NUR ---
OFFERED TO BATH/SHOWER PATIENT. PATIENT REFUSED. LINENS CHANGED, NEW SOCKS APPLIED. PATIENT HAD BM ON SOCKS AND LEGS. LEGS WASHED.
--- NOTE | 2018-06-12 15:02 | NUR ---
UPDATED PATIENTS SISTER ON DC PLAN FOR TOMORROW TO [facility] [place]. SISTER WOULD LIKE TO KNOW WHEN PATIENT IS LEAVING TOMORROW.
--- NOTE | 2018-06-12 16:03 | NUR ---
PATIENT REMAINS ALERT AND ORIENTED. DENIES PAIN. O2 AT 4L. SAT 94%. BREATHING TREATMENTS SCHEDULED. PATIENT FREQUENTLY REMOVES O2. NON COMPLIANT WITH MEDICATIONS. EDUCATED ON THE IMPORTANCE OF TAKING THE MEDICATIONS WHEN SCHEDULED TO HELP ADEQUATELY CONTROL BLOOD GLUCOSE. PATIENT SNACKS AND DRINKS SODA ALL DAY. SMALL BM THIS AM. VOIDING ADEQUATELY PER BSC. URINE DARK YELLOW. PATIENT REFUSED BATH. REFUSED SCD'S- EDUCATION GIVEN. PATIENT INITIALLY REFUSED PICTURES TO BE TAKEN OF LEFT BREAST RASH(BREAST CA) AND COCCYX (BLANCHABLE REDNESS). PATIENT AGREED TO PICTURES TODAY. PATIENT HAS MULTIPLE BRUISES BUT DID NOT ALLOW PICTURES OF THEM. BED ALARM SET. PATIENT IMPULSIVE. CALL LIGHT WITHIN REACH. HOURLY ROUNDING COMPLETED. WILL CONTINUE TO MONITOR.
[2018-06-12 16:40] VITALS: BP 112/57
[2018-06-12 20:30] VITALS: BP 111/66
--- NOTE | 2018-06-13 05:45 | NUR ---
PATIENT ALERT AND ORIENTED X 4, FORGETFUL AT TIMES. SEEMED MORE ANXIOUS THIS SHIFT BUT REFUSED ATIVAN. ATE SNACKS AND DRUNK POP ALL NIHGT. VITALS STABLE ON 4L OF OXYGEN. UP WITH ASSIST X 1 TO BSC OR BATHROOM. PRODUCTIVE COUGH. SCHEDULED AND PRN BREATHING TREATMENTS GIVEN. IMPULSIVE. BED ALARM IN USE. MODERATE SIZED BOWEL MOVEMENT THIS MORNING. REMINDED TO KEEP OXYGEN ON SEVERAL TIMES. HOURLY ROUNDS. BED ALARM IN USE. NURSING WILL CONTINUE TO MONITOR.
[2018-06-13 07:53] VITALS: BP 111/66
[2018-06-13] MEDS ORDERED: ALBUTEROL2.5 MG/31 INH (07:57)
[2018-06-13] MEDS ORDERED: LEVAQUIN 500 M500 M2 PO (07:59)
[2018-06-13 08:00] VITALS: BP 119/52
[2018-06-13] MEDS ORDERED: AUGMENTIN 875-1 EACH PO (08:44)
[2018-06-13] MEDS ORDERED: ARIMIDEX1 MG PO (09:51)
--- NOTE | 2018-06-13 13:00 | NUR ---
ASKED P.T. TO SEE PT.MARY INSURANCE REQUESTING UPDATE TO AUTH SNF FOR TODAY. P.T. SAW PT. AT 1303. CM HAD TO REQUEST BRIEF FOLLOW UP NOTE AT APPROX 1500, TO SEND TO [facility], SO INSURANCE AUTH COULD BE OBTAINAED. NOTE IN COMPUTER APPROX.AT 1530. FAXED OT/PT FOLLOW UPS TO MELVIN/[facility]. SHE SAID SHE WOULD FAX TO INSURANCE BUT DOUBTED SHE WOULD GET AUTH DUE TO LATENESS OF DAY. NURSING INFORMED.
--- NOTE | 2018-06-13 16:49 | NUR ---
PATIENT REMAINS ALERT AND ORIENTED. DENIES PAIN. O2 3L. BREATHING TREATMENTS. PATIENT REMOVES O2 FREQUENTLY. TESSALON PERLE FOR COUGH THIS AFTERNOON. PATIENT SLIGHTLY MORE COMPLIANT WITH MED PASS TIMES. SNACKS ALL DAY LONG. IMPULSIVE. ADEQUATE URINE OUTPUT PER COMMODE. WORKED WITH PT/OT. INSURANCE AUTH RE-SUBMITTED FOR SNF. REFUSES BED ALARM AT TIMES. REFUSED BATH OR GOWN CHANGE. ENCOURAGED TO REPOSITION EVERY 2 HOURS. BLANCHABLE REDNESS TO COCCYX. BREAST CA TO LEFT BREAST WITH LARGE AREA OF RED SPOTS. HOURLY ROUNDING COMPLETED. CALL LIGHT WITHIN REACH. WILL CONTINUE TO MONITOR.
[2018-06-13 20:35] VITALS: BP 139/61
[2018-06-14 08:30] VITALS: BP 138/72
--- NOTE | 2018-06-14 13:30 | NUR ---
MELVIN/GUILHERME OCHO[facility] CALLED AND SAID SHE HAD OBTAINED AUTHORIZATION FROM INSURANCE FOR PT.TO GO TO SNF BED. DISCUSSED WITH PT. SHE WAS AGREEBLE. MELVIN WILL SET UP [facility] FOR 1500. FAXED DISCHARGE ORDERS TO MELVIN[facility].
--- NOTE | 2018-06-14 14:40 | NUR ---
REPORT CALLED TO [facility].
--- NOTE | 2018-06-14 14:58 | NUR ---
PATIENT DISCHARGED TO THE [facility], [place], [facility] AT THIS TIME. LEFT MESSAGE FOR PATIENTS SISTER TRACI TO INFORM HER OF DC. BELONGINGS AND COPY OF CHART SENT.
--- NOTE | 2018-06-14 15:00 | NUR ---
PATIENT REFUSED DISCHARGE PHOTOS.
== END 2018-06-14 15:00 | DRG 871 ==
LOC: M.ERS 21:43 → M.TBA-ER 22:48 → M.ORTHSURG 22:48
PROVIDERS: Emergency Medicine; ADMIT Family Medicine
DX: A41.9 Sepsis, unspecified organism (principal); J96.01 Acute respiratory failure with hypoxia; I21.3 ST elevation (STEMI) myocardial infarction of unspecified site; J44.1 Chronic obstructive pulmonary disease with (acute) exacerbation; C79.81 Secondary malignant neoplasm of breast; C50.912 Malignant neoplasm of unspecified site of left female breast; E11.9 Type 2 diabetes mellitus without complications; M10.9 Gout, unspecified; F17.210 Nicotine dependence, cigarettes, uncomplicated; Z23 Encounter for immunization; Z79.51 Long term (current) use of inhaled steroids; Z79.82 Long term (current) use of aspirin; Z79.84 Long term (current) use of oral hypoglycemic drugs; Z79.899 Other long term (current) drug therapy; Z88.8 Allergy status to other drugs, medicaments and biological substances; Z82.5 Family history of asthma and other chronic lower respiratory diseases; Z17.0 Estrogen receptor positive status [ER+]

== ENCOUNTER 2018-07-08 05:09 | Inpatient (IN) | payer OTHER, MEDICAID ==
[~2018-07-08] VITALS: Ht 157.5 cm; Wt 70.3 kg
[~2018-07-08 05:09] MED LIST changes: +ARIMIDEX1 MG PO; +AUGMENTIN 875-1 EACH PO; +GLYBURIDE 2.52.5 MG PO
[2018-07-08 05:26] VITALS: BP 158/86
[2018-07-08 05:55] LABS: ABSOLUTE EOSINOPHILS 0.1 thou/uL (0.0-0.7); ABSOLUTE LYMPHOCYTES 0.9 thou/uL (0.8-5.3); ABSOLUTE MONOCYTES 0.3 thou/uL (0.0-1.2); ABSOLUTE NEUTROPHILS 4.1 thou/uL (1.6-8.1); BASOPHILS 0.7 %; EOSINOPHILS 1.6 %; HEMATOCRIT 35.5 % (37.0-47.0); HEMOGLOBIN 11.8 gm/dL (12.0-15.0); LYMPHOCYTES 16.3 %; MCHC 33.1 g/dL (28.0-37.0); MCV 90.5 fL (80.0-100.0); MONOCYTES 6.4 %; MPV 7.6 fl. (7.2-11.1); NUCLEATED RBCS 0 /100WBC; PLATELET COUNT* 197 thou/uL (150-400); RBC 3.93 mil/uL (4.20-5.00); RDW-CV 15.8 % (10.5-14.5); WBC 5.4 thou/uL (4.0-11.0)
[2018-07-08 06:06] LABS: INR 1.1; PROTIME 11.1 Seconds (9.20-11.50)
[2018-07-08 06:10] LABS: ANION GAP 6 mmol/L (7-16); BUN 8 mg/dL (7-18); CALCIUM 8.7 mg/dL (8.5-10.1); CHLORIDE 106 mmol/L (98-107); CO2 28 mmol/L (21-32); CREATININE 0.8 mg/dL (0.6-1.3); GLUCOSE 251 mg/dL (70-99); SODIUM 140 mmol/L (136-145)
[2018-07-08 06:25] LABS: ALKALINE PHOSPHATASE 110 U/L (46-116); NT-PRO BRAIN NAT PEPTIDE 209 pg/mL (<300); SGOT 17 U/L (15-37); SGPT 19 U/L (30-65); TOTAL BILIRUBIN 0.4 mg/dL (<0.1-1.0); TOTAL PROTEIN 6.1 g/dL (6.4-8.2); TROPONIN-I LEVEL <0.06 ng/mL (<0.06)
[2018-07-08 08:03] LABS: URINE BILIRUBIN NEGATIVE (Negative); URINE BLOOD NEGATIVE (Negative); URINE CLARITY CLEAR; URINE COLOR YELLOW; URINE GLUCOSE-RANDOM 1+ (Negative); URINE KETONES TRACE (Negative); URINE LEUKOCYTES-REFLEX NEGATIVE (Negative); URINE NITRITE-REFLEX NEGATIVE (Negative); URINE PROTEIN NEGATIVE (Negative); URINE SPECIFIC GRAVITY 1.015 (1.005-1.030); URINE UROBILINOGEN 0.2 E.U./dl (0.2-1.0)
[2018-07-08 08:28] VITALS: BP 127/65
[2018-07-08 09:00] VITALS: BP 148/88
[2018-07-08 12:00] VITALS: BP 132/88
--- NOTE | 2018-07-08 12:42 | EKG ---
[place] [address] ELECTROCARDIOGRAM REPORT Name: NISHANT VENTURA Room: [address] ADM IN [facility].#: [id number] Admission: 07/08/18 Attend Phys: Maikel Song MD Discharge: Date of : 45 Report #: [id number] THIS REPORT FOR: //name// [facility] ED Test Date: 2018-07-08 Test Time: 05:15:38 Pat Name: NISHANT VENTURA Department: Room: [facility] Gender: F Drosser: : 1945 Requested By: Gay Zaragoza Order Number: [id number] MD: Cj Melgoza Measurements Intervals [place] Rate: 105 P: 81 OK: 169 QRS: 82 QRSD: 118 T: -67 QT: 341 QTc: 451 Interpretive Statements Sinus tachycardia Nonspecific intraventricular conduction delay Repol abnrm suggests ischemia, lateral leads Compared to ECG 06/04/2018 22:03:22 Possible ischemia still present Electronically Signed On 07-08-2018 12:42:09 BACKSIDE GRINDER by Cj Melgzoa [email or web address] <ELECTRONICALLY SIGNED> By: Cj Melgoza MD, FACC 07/08/18 1242 0515 0515 Cj Melgoza MD, [facility] /EPI
[2018-07-08 16:00] VITALS: BP 149/59
[2018-07-08 20:00] VITALS: BP 133/73
[2018-07-09] VITALS: BP 128/61
[2018-07-09 05:24] LABS: ABSOLUTE LYMPHOCYTES 0.9 thou/uL (0.8-5.3); ABSOLUTE MONOCYTES 0.5 thou/uL (0.0-1.2); ABSOLUTE NEUTROPHILS 3.6 thou/uL (1.6-8.1); BASOPHILS 0.3 %; EOSINOPHILS 0.1 %; HEMATOCRIT 33.5 % (37.0-47.0); HEMOGLOBIN 11.2 gm/dL (12.0-15.0); LYMPHOCYTES 17.9 %; MCH 30.2 pg (26.0-34.0); MCHC 33.5 g/dL (28.0-37.0); MCV 90.3 fL (80.0-100.0); MONOCYTES 10.3 %; MPV 8.6 fl. (7.2-11.1); NUCLEATED RBCS 0 /100WBC; PLATELET COUNT* 210 thou/uL (150-400); POLYS 71.4 %; RBC 3.71 mil/uL (4.20-5.00); RDW-CV 15.2 % (10.5-14.5); WBC 5.1 thou/uL (4.0-11.0)
[2018-07-09 05:40] LABS: CALCIUM 8.8 mg/dL (8.5-10.1); CREATININE 0.8 mg/dL (0.6-1.3); POTASSIUM 4.3 mmol/L (3.5-5.1)
--- NOTE | 2018-07-09 07:59 | NUR ---
PT CARE ASSUMED AT 1930. SAT MAINTAINED IN 2L NC. CALL LIGHT WITHIN REACH. BED IN LOW POSITION. PT ASKED FOR SLEEP MEDICATION, CASH MANAGEMENT COORDINATOR PER EMAR AND CHARTED. VSS AND CHATED. DENIES SOB AND PAIN. UP AD JACEK TO BEDSIDE COMMODE.
[2018-07-09 09:00] VITALS: BP 138/61
--- NOTE | 2018-07-09 14:48 | NUR ---
Pt nurse, Oly, discussed with SW about pt situation and possible need for hospice care at dc. Oly explained that pt has breast cancer history and has opted to stop chemo txs. Pt is on IV abx. SW met with pt to complete initial assessment, introduce self, and SW role. Pt said she did not feel like talking with SW today; that she was "too tired" and closed her eyes. SW asked if pt had a support person SW could call and pt said "no" so SW did not even have the chance to discuss/follow up on hospice option with pt. Pt did confirm with SW that she continues to live alone. SW said that a SW/CM would follow up with pt on Wednesday. From previous record, pt does have friends for support and they helped her with transportation at times and sometimes helped her with her cats. Pt lives at an apt/motel alone. Pt dc to [facility] after last hospitalization. Pt had a cane available to her if she needed it. SW to continue to follow to assist with safe dc planning possibly for Wednesday.
[2018-07-09 16:00] VITALS: BP 134/65
--- NOTE | 2018-07-09 18:42 | NUR ---
ASSUMED PT CARE AT 0730, FULL ASSESMENT DONE CHARTED. PT A/O X4, ANXOIUS AT TIMES, VSS, ON 2L O2 SATS MID 90'S, SOA WITH EXHURSION, UP TO BSC AD JACEK. PT USES CALL LIGHT APPROPRIATLY. CM IN TO SPEAK TO PT TODAY. PT EDUCATED ON PLAN OF CARE, TRANSFERED TO ROOM 117 AT APPROX 1810, REPORT GIVEN TO HELENA SALGADO.
[2018-07-09 21:30] VITALS: BP 131/60
--- NOTE | 2018-07-10 05:33 | NUR ---
ALERT AND ORIENTED X4. UP TO BEDSIDE COMMODE WITH STAND BY ASSIST. VOIDING WITHOUT DIFFICULTY. DENIES PAIN OR NAUSEA. REMAINS ON O2 AT 2L/NC WITH O2 SATS IN MID 90'S. CONTINUES TO RECEIVE IV ANTIBIODICS AND BREATHING TREATMENTS. NEW IV STARTED IN RIGHT FOREARM. BED ALARM ON. CALL LIGHT WITHIN REACH.
[2018-07-10 07:30] VITALS: BP 162/79
[2018-07-10 16:32] VITALS: BP 132/52
--- NOTE | 2018-07-10 18:36 | NUR ---
PT ALERT AND ORIENTED X 4. IV PATENT. DENIES PAIN OR NAUSEA. OXYGEN ON @ 2L/NC. PT HAD X-RAY AND CT CHEST/PE PROTOCOL IN AFTERNOON. PT REFUSED ALL PO MEDS IN AM. AGREED TO TAKE SOME MEDICATIONS AFTER CT CHEST IF OBTAINED A GRAPE SODA FOR HER. UP WITH SBA X 1. PT UNABLE TO PROVIDE SPUTUM CULTURE DURING SHIFT. HOURLY ROUNDS MAINTAINED. CALL LIGHT WITHIN REACH. NURSING TO CONTINUE TO MONITOR.
[2018-07-11 03:29] LABS: ABSOLUTE LYMPHOCYTES 0.7 thou/uL (0.8-5.3); ABSOLUTE MONOCYTES 0.3 thou/uL (0.0-1.2); ABSOLUTE NEUTROPHILS 3.3 thou/uL (1.6-8.1); BASOPHILS 0.4 %; HEMOGLOBIN 11.1 gm/dL (12.0-15.0); LYMPHOCYTES 16.7 %; MCH 30.2 pg (26.0-34.0); MCHC 33.6 g/dL (28.0-37.0); MCV 89.9 fL (80.0-100.0); MONOCYTES 6.6 %; MPV 8.3 fl. (7.2-11.1); NUCLEATED RBCS 0 /100WBC; PLATELET COUNT* 196 thou/uL (150-400); POLYS 76.3 %; RBC 3.66 mil/uL (4.20-5.00); WBC 4.3 thou/uL (4.0-11.0)
[2018-07-11 03:38] LABS: CALCIUM 8.8 mg/dL (8.5-10.1)
--- NOTE | 2018-07-11 05:53 | NUR ---
ALERT AND ORIENTED X4. UP WITH 1 ASSIST TO BEDSIDE COMMODE. NO C/O PAIN OR NAUSEA. REMAINS ON O2 AT 2L/NC TO KEEP O2 SAT IN MID 90'S. CONTINUES ON IV ANTIBIODICS AND BREATHING TREATMENTS. CALL LIGHT WITHIN REACH. WILL CONTINUE TO MONITOR,
[2018-07-11 08:30] VITALS: BP 150/60
[2018-07-11 15:47] VITALS: BP 139/55
--- NOTE | 2018-07-11 18:50 | NUR ---
ALERT AND ORIENTED X4. UP STAND BY ASSIST IN ROOM. IV IS PATENT AND SALINE LOCKED. DENIES PAIN AND NAUSEA. TOLERATING DIET. PATIENT IS VERY PICKY ON WHEN AND HOW SHE TAKES HER MEDICATIONS. VSS ON ROOM AIR. HOURLY ROUNDS HAVE BEEN MAINTAINED THROUGHOUT SHIFT. CALL LIGHT IS WITHIN REACH. NURSING WILL CONTINUE TO MONITOR.
[2018-07-11 20:29] VITALS: BP 128/46
--- NOTE | 2018-07-12 05:23 | NUR ---
ASSUMED CARE OF PATIENT AT APPROX 1930. ALERT AND ORIENTED X4. ASSESSMENT COMPLETED AND CHARTED. VSS ON 2 LITERS 02 VIA WI. NO COMPLEINTS OF PAIN, NAUSEA, OR SOA. ANTIBIOTICS INFUSED ORDERED. PATIENT UP WITH SBA TO BSC. RESTING COMFORTABLY ON HOURLY ROUNDS. CALL IGHT IN REACH. NURSING WILL CONTINUE TO MONITOR.
[2018-07-12 08:00] VITALS: BP 160/64
[2018-07-12 16:31] VITALS: BP 130/55
--- NOTE | 2018-07-12 18:42 | NUR ---
ALERT AND ORIENTED X4. UP WITH STAND BY ASSIST. IV IS PATENT AND INFUSING ANTIBIOTIC AT THIS TIME. DENIES PAIN AND NAUSEA. PATIENT IS VERY ANXIOUS AND PICKY ABOUT HOW AND WHEN SHE TAKES HER MEDICATIONS. TOLERATNG DIET. ATTENDED THERAPY TODAY AND AMBULATED IN [place]. VSS ON 2L O2. HOURLY ROUNDS HAVE BEEN MAINTAINED THROUGHOUT SHIFT. CALL LIGHT IS WITHIN REACH. NURSING WILL CONTINUE TO MONITOR.
[2018-07-12 20:00] VITALS: BP 135/59
--- NOTE | 2018-07-13 06:24 | NUR ---
Assumed patient care at 1900. Patient alert and oriented times four. No complaints of pain or discomfort noted. New IV started in right upper arm. Patent to IV abt's. Hourly rounding and RN assesment completed as charted.
[2018-07-13 07:30] VITALS: BP 151/75
[2018-07-13 09:48] VITALS: BP 151/75
--- NOTE | 2018-07-13 10:30 | NUR ---
SPOKE WITH PT. AT FIRST SHE SAID SHE WANTED TO TAKE A NAP BUT CM TOLD HER SHE MAY BE DISCHARGED SOON AND WE NEEDED TO DISCUSS A PLAN. SHE WANTS TO GO HOME AT DISCHARGE. REFUSING SNF ALTHOUGH SHE SAID SHE FEELS WEAK. IS RECEIVING P.T. CONFIRMED THE ONLY DME SHE HAS IS A CANE AND NEBULIZER. SHE USES [facility] AT [address] LIVES IN AN APT.AT AN EXTENDED STAY HOTEL. SHE HAS A COUPLE OF FRIENDS THAT CAN ASSIST HER WITH TAKING HER ON ERRANDS,ETC. DISCUSSED PALLIATIVE CARE VS HOSPICE CARE AT HOME. SHE REMEMBERED TALKING ABOUT IT SEVERAL DAYS AGO. SHE SAID SHE HASN'T DECIDED ON THAT YET. GAVE HER A HANDOUT ON PALLIATVE VS HOSPICE CARE. CM WILL FOLLOW.
[2018-07-13 11:32] VITALS: BP 154/74
--- NOTE | 2018-07-13 15:43 | NUR ---
I have reviewed the reassessment and documentation by student nurse Domenica Keenan and agree
[2018-07-13 15:45] VITALS: BP 150/77
--- NOTE | 2018-07-13 17:23 | NUR ---
REVIEWED AND AGREE WITH ALL CHARTING AND ASSESSMENTS COMPLETED BY KIM Beyer RN.
--- NOTE | 2018-07-13 17:29 | NUR ---
PT REMAINED ALERT AND ORIENTED THIS SHIFT. PT STATES THEY CANNOT GO HOME IF THEY HAVE NOT BEEN OUT OF BED. PT ENCOURAGED TO WALK IN [place] TO GET PUDDING WITH CANOE MAKER. PT REFUSED PT TWICE TODAY. PT REFUSED TO WALK LATER ON WITH CANOE MAKER. PT IS ON 4 LITERS BY NASAL CANNULA. PT WILL NEED RESTING AND ACTIVITY SPO2. PT GVIVEN INFORMATION ON HOSPICE AND PALLIATIVE CARE. PT STATES THEY DO NOT KNOW WHAT THEY WANT. HOURLY ROUNDING COMPLETED. BED ALARM ON. WILL CONTINUE TO MONITOR.
[2018-07-13 20:09] VITALS: BP 125/88
--- NOTE | 2018-07-13 20:48 | NUR ---
Assumed patient care at 1900. Patient alert and oriented times four. dining room coordinator completed as documented. No complaints of pain or discomfort noted. Patient ambulated to the restroom independently with walker. Refused to wear O2, oxygen saturation monitored whie patient ambulated. 95% on room air. Will continue to monitor
[2018-07-14 08:18] VITALS: BP 146/74
--- NOTE | 2018-07-14 11:00 | NUR ---
SPOKE WITH PT.ABOUT DISCHARGE. SHE WOULD LIKE TO GO HOME AFTER LUNCH. SHE WILL NEED A WALKER. CONTACTED [facility],WHO AUTH'D PT.TO HAVE A WALKER. ORDER OBTAINED FROM AND GAVE TO Milka/[facility]OR[facility] TO DISPENSE A WALKER PRIOR TO DISCHARGE. PT.DECLINED HOMEHEALTH. ENCOURAGED HER TO LET HOSPICE COME TO HER APT.TO TALK TO HER ABOUT HOSPICE VS PALLIATIVE CARE. SHE SAID SHE WOULD LIKE A VISIT BECAUSE SHE COULDN'T DECIDE. RANDY SPOKE WITH [facility]. FAXED HER FACE SHEET AND H&P. SHE SAID SHE WOULD SET UP VISIT. ALL INFORMAITON PUT ON DISCHARGE INSTRUCTIONS.
[2018-07-14] MEDS ORDERED: PREDNISONE 10 M10 MG PO (11:13)
[2018-07-14] MEDS ORDERED: SENNA8.6 MG PO (11:14)
[2018-07-14] MEDS ORDERED: MIRALAX17 GM PO (11:15)
[2018-07-14] MEDS ORDERED: MUCINEX600 MG PO (11:16)
[2018-07-14] MEDS ORDERED: BUDESONIDE0.5 MG/2 M INH (11:18)
[2018-07-14 11:27] VITALS: BP 146/74
[2018-07-14 12:55] VITALS: BP 146/74
--- NOTE | 2018-07-14 13:55 | NUR ---
MEDICAID TRANSPORTATION FOR [facility] SET UP AT THIS TIME WITH [facility] [phone]. PT.CAN AMBULATE. [facility] WILL BE HERE FROM NOW TO 165. THEY WILL CALL WHEN THEY ARRIVE AT HOSPITAL.
--- NOTE | 2018-07-14 15:08 | NUR ---
REVIEWED AND AGREE WITH ALL CHARTING AND ASSESSMENTS COMPLETED BY KIM Beyer RN.
[2018-07-14 17:52] VITALS: BP 146/74
--- NOTE | 2018-07-14 17:52 | NUR ---
PT GIVEN DISCHARGE INFORMATIOHN AND PRESCRIPTIONS AT THIS TIME. BELONINGS GATHERED. PT LEFT VIA WHEELCHAIR WITH NURSING STAFF AND TRANSPORTER TO HOME CARE. HOURLY ROUNDING COMPLETED. IV REMOVED.
== END 2018-07-14 17:55 | disposition home or self-care (01) | DRG 177 ==
LOC: M.ERS 05:09 → M.TBA-ER 05:59 → M.2W 05:59 → M.ORTHSURG 07-09 17:30
PROVIDERS: Emergency Medicine; Family Medicine; ADMIT Internal Medicine
DX: J15.6 Pneumonia due to other Gram-negative bacteria (principal); J96.01 Acute respiratory failure with hypoxia; J44.1 Chronic obstructive pulmonary disease with (acute) exacerbation; J44.0 Chronic obstructive pulmonary disease with (acute) lower respiratory infection; E11.9 Type 2 diabetes mellitus without complications; M10.9 Gout, unspecified; C50.919 Malignant neoplasm of unspecified site of unspecified female breast; Z28.21 Immunization not carried out because of patient refusal; K59.00 Constipation, unspecified; Z85.3 Personal history of malignant neoplasm of breast; Z88.8 Allergy status to other drugs, medicaments and biological substances; Z87.891 Personal history of nicotine dependence; Z83.6 Family history of other diseases of the respiratory system; Z79.899 Other long term (current) drug therapy

== ENCOUNTER 2018-08-26 20:52 | Inpatient (IN) | payer OTHER, MEDICAID ==
[~2018-08-26] VITALS: Ht 165.1 cm; Wt 55.3 kg
[~2018-08-26 20:52] MED LIST changes: +BUDESONIDE0.5 MG/2 M INH; +MIRALAX17 GM PO; +MUCINEX600 MG PO; +SENNA8.6 MG PO
[2018-08-26 20:59] VITALS: BP 130/80
[2018-08-26 21:29] LABS: BE 1.9 mmol/L (-2 to +3); HCO3 25.5 mmol/L (22.0-26.0); PCO2 36.7 mmHg (35.0-45.0); PO2 53.5 mmHg (75.0-100.0)
[2018-08-26 21:43] LABS: ABSOLUTE BASOPHILS 0.1 thou/uL (0.0-0.2); ABSOLUTE EOSINOPHILS 0.1 thou/uL (0.0-0.7); ABSOLUTE LYMPHOCYTES 1.4 thou/uL (0.8-5.3); ABSOLUTE MONOCYTES 0.6 thou/uL (0.0-1.2); ABSOLUTE NEUTROPHILS 5.3 thou/uL (1.6-8.1); EOSINOPHILS 1.1 %; HEMATOCRIT 40.4 % (37.0-47.0); HEMOGLOBIN 13.7 gm/dL (12.0-15.0); LYMPHOCYTES 19.2 %; MCH 29.6 pg (26.0-34.0); MCHC 33.8 g/dL (28.0-37.0); MCV 87.5 fL (80.0-100.0); MONOCYTES 7.6 %; MPV 8.7 fl. (7.2-11.1); NUCLEATED RBCS 0 /100WBC; PLATELET COUNT* 244 thou/uL (150-400); POLYS 71.1 %; RBC 4.62 mil/uL (4.20-5.00); RDW-CV 13.1 % (10.5-14.5); WBC 7.4 thou/uL (4.0-11.0)
[2018-08-26 21:54] LABS: CALCIUM 9.8 mg/dL (8.5-10.1); CREATININE 0.8 mg/dL (0.6-1.3)
[2018-08-26 21:58] LABS: MAGNESIUM 1.6 mg/dL (1.8-2.4); TOTAL BILIRUBIN 0.6 mg/dL (<0.1-1.0); TOTAL PROTEIN 6.4 g/dL (6.4-8.2)
[2018-08-26 22:03] LABS: POTASSIUM 2.8 mmol/L (3.5-5.1)
[2018-08-26 23:30] VITALS: BP 128/72
[2018-08-27] VITALS: BP 125/62
[2018-08-27 04:00] VITALS: BP 127/68
[2018-08-27 08:00] VITALS: BP 133/90
[2018-08-27 08:37] LABS: CALCIUM 9.5 mg/dL (8.5-10.1); CREATININE 0.9 mg/dL (0.6-1.3); MAGNESIUM 1.5 mg/dL (1.8-2.4); POTASSIUM 3.5 mmol/L (3.5-5.1)
[2018-08-27 12:00] VITALS: BP 143/67
[2018-08-27 16:00] VITALS: BP 130/65
[2018-08-27 16:39] LABS: CALCIUM 9.4 mg/dL (8.5-10.1); MAGNESIUM 1.7 mg/dL (1.8-2.4); POTASSIUM 3.7 mmol/L (3.5-5.1)
[2018-08-27 20:00] VITALS: BP 129/59
[2018-08-28] VITALS: BP 127/64
[2018-08-28 03:23] LABS: URINE BILIRUBIN NEGATIVE (Negative); URINE BLOOD NEGATIVE (Negative); URINE CLARITY CLEAR; URINE COLOR YELLOW; URINE GLUCOSE-RANDOM 1+ (Negative); URINE KETONES NEGATIVE (Negative); URINE NITRITE-REFLEX NEGATIVE (Negative); URINE PROTEIN NEGATIVE (Negative); URINE UROBILINOGEN 0.2 E.U./dl (0.2-1.0)
[2018-08-28 03:25] LABS: URINE LEUKOCYTES-REFLEX 2+ (Negative)
[2018-08-28 03:33] LABS: BACTERIA-REFLEX >30 Many /HPF (None Seen); CASTS None Seen /LPF (None Seen); CRYSTALS None Seen /LPF (None Seen); MUCUS 0-3 Light strn/LPF (None Seen); SQUAMOUS 4-10 Moderate /LPF (0-3); TRANSITIONAL EPITHEL CELL 0-3 Few /LPF (None Seen); URINE RBC 0-2 Rare /HPF (0-2); URINE WBC-REFLEX >25 Many /HPF (0-5); WBC CLUMPS Few (None Seen); YEAST-REFLEX Present (None Seen)
[2018-08-28 04:00] VITALS: BP 128/74
[2018-08-28 05:22] LABS: HEMATOCRIT 34.8 % (37.0-47.0); HEMOGLOBIN 12.1 gm/dL (12.0-15.0); MCH 30.8 pg (26.0-34.0); MCHC 34.8 g/dL (28.0-37.0); MCV 88.5 fL (80.0-100.0); MPV 9.1 fl. (7.2-11.1); NUCLEATED RBCS 0 /100WBC; PLATELET COUNT* 213 thou/uL (150-400); RBC 3.93 mil/uL (4.20-5.00); RDW-CV 13.1 % (10.5-14.5)
[2018-08-28 05:59] LABS: CALCIUM 9.3 mg/dL (8.5-10.1); CREATININE 0.9 mg/dL (0.6-1.3); POTASSIUM 4.3 mmol/L (3.5-5.1)
[2018-08-28 06:39] LABS: ABSOLUTE LYMPHOCYTES 0.4 thou/uL (0.8-5.3); ABSOLUTE MONOCYTES 0.3 thou/uL (0.0-1.2); ABSOLUTE NEUTROPHILS 8.4 thou/uL (1.6-8.1); ANISOCYTOSIS 1+; PLATELET ESTIMATE ADEQUATE; POIKILOCYTOSIS 1+
[2018-08-28 08:04] VITALS: BP 137/56
--- NOTE | 2018-08-28 11:10 | EKG ---
[place] [address] ELECTROCARDIOGRAM REPORT Name: NISHANT VENTURA Room: [place] [address] ADM IN .R.#: [id number] Admission: 08/26/18 Attend Phys: Maikel Song MD Discharge: Date of : 45 Report #: [id number] THIS REPORT FOR: //name// [facility] ED Test Date: 2018-08-26 Test Time: 21:12:22 Pat Name: NISHANT VENTURA Department: Room: [facility] Gender: F Dray Truck Driver: ZABRINA : 1945 Requested By: Dang Schmitt Order Number: [id number] MD: Felix Davis Measurements Intervals [place] Rate: 110 P: 91 IA: 154 QRS: 69 QRSD: 101 T: 241 QT: 333 QTc: 451 Interpretive Statements Sinus tachycardia Probable left atrial enlargement Possible anteroseptal infarct, old Borderline repolarization abnormality Compared to ECG 07/08/2018 05:15:38 Myocardial infarct finding now present Intraventricular conduction delay no longer present Possible ischemia no longer present Electronically Signed On 08-28-2018 11:10:23 PORCELAIN TURNER by Felix Davis [email or web address] <ELECTRONICALLY SIGNED> By: Felix Davis MD, FACC 08/28/180 11 11 Felix Davis MD, FACC /EPI
[2018-08-28 12:46] VITALS: BP 122/59
[2018-08-28 16:00] VITALS: BP 142/74
[2018-08-28 20:00] VITALS: BP 126/59
[2018-08-29] VITALS: BP 147/64
[2018-08-29 04:00] VITALS: BP 149/82
[2018-08-29 08:00] VITALS: BP 162/81
[2018-08-29 10:09] LABS: URINE BILIRUBIN NEGATIVE (Negative); URINE BLOOD NEGATIVE (Negative); URINE CLARITY CLEAR; URINE COLOR YELLOW; URINE GLUCOSE-RANDOM NEGATIVE (Negative); URINE KETONES NEGATIVE (Negative); URINE LEUKOCYTES-REFLEX 1+ (Negative); URINE NITRITE-REFLEX NEGATIVE (Negative); URINE PROTEIN NEGATIVE (Negative); URINE UROBILINOGEN 0.2 E.U./dl (0.2-1.0)
[2018-08-29 10:15] LABS: SQUAMOUS 4-10 Moderate /LPF (0-3); URINE WBC-REFLEX 6-15 Few /HPF (0-5)
[2018-08-29 10:16] LABS: BACTERIA-REFLEX 1-9 Few /HPF (None Seen); CASTS None Seen /LPF (None Seen); CRYSTALS None Seen /LPF (None Seen); MUCUS None Seen strn/LPF (None Seen); URINE RBC 3-10 Few /HPF (0-2)
[2018-08-29 11:59] VITALS: BP 173/91
[2018-08-29 16:06] VITALS: BP 154/67
--- NOTE | 2018-08-29 16:46 | 2DMMODE ---
[place] [address] 2 D/M-MODE ECHOCARDIOGRAM Name: NISHANT VENTURA Room: [facility] ADM IN [facility]#: [id number] Admission: 08/26/18 Attend Phys: Maikel Song, Discharge: Date of : 45 Date of Service: 08/29/18 1646 Report #: [id number] THIS REPORT FOR: //name// APPROVED REPORT Study performed: 08/29/2018 14:20:16 EXAM: Comprehensive 2D, Doppler, and color-flow Echocardiogram Patient Location: In-Patient Room #: 227 BSA: 1.64 HR: 92 bpm BP: 152/78 mmHg Other Information Study Quality: Fair Technically limited study due to COPD Pneumonia. Indications Dyspnea 2D Dimensions IVSd: 10.62 (7-11mm) LVOT Diam: 18.64 (18-24mm) LVDd: 38.68 mm PWd: 9.63 (7-11mm) Ascending Ao: 21.69 (22-36mm) LVDs: 31.56 (25-40mm) Aortic Root: 25.57 mm Volumes Left Atrial Volume (Systole) LA ESV Index: 20.10 mL/m2 Aortic Valve AoV Peak Brigido.: 1.34 m/s AO Peak Gr.: 7.16 mmHg LVOT Max P.79 mmHg AO Mean Gr.: 3.74 mmHg LVOT Mean P.88 mmHg LVOT Max V: 0.97 m/s AO V2 VTI: 22.90 cm LVOT Mean V: 0.63 m/s JAEL (VTI): 2.12 cm2 LVOT V1 VTI: 17.82 cm Mitral Valve E/A Ratio: 0.61 MV Decel. Time: 219.63 [place] [address] 2 D/M-MODE ECHOCARDIOGRAM Name: NISHANT VENTURA Room: [address] IN [facility].#: [id number] Admission: 08/26/18 Attend Phys: Maikel Song, Discharge: Date of : 45 Date of Service: 08/29/18 1646 Report #: [id number] MV E Max Brigido.: 0.59 m/s MV PHT: 63.69 ms MVA (PHT): 3.45 cm2 TDI E/Lateral E': 7.38 E/Medial E': 8.43 Medial E' Brigido.: 0.07 m/s Lateral E' Brigido.: 0.08 m/s Pulmonary Valve PV Peak Brigido.: 0.88 m/s PV Peak Gr.: 3.12 mmHg Left Ventricle The left ventricle is normal size. There is normal LV segmental wall motion. There is normal left ventricular wall thickness. Left ventricular systolic function is normal. The left ventricular ejection fraction is within the normal range. LVEF is 55-60%. Grade I - abnormal relaxation pattern. Right Ventricle The right ventricle is normal size. The right ventricular systolic function is normal. Atria The left atrium size is normal. The right atrium size is normal. Aortic Valve Mild aortic valve sclerosis. No aortic regurgitation is present. There is no aortic valvular stenosis. Mitral Valve The mitral valve is normal in structure. There is no mitral valve regurgitation noted. No evidence of mitral valve stenosis. Tricuspid Valve The tricuspid valve is normal in structure. There is no tricuspid valve regurgitation noted. Pulmonic Valve The pulmonary valve is normal in structure. There is no pulmonic valvular regurgitation. Great Vessels The aortic root is normal in size. IVC is normal in size and collapses >50% [place] [address] 2 D/M-MODE ECHOCARDIOGRAM Name: ROGELIONISHANT LOPEZ ZEN Room: [address] IN [facility]#: [id number] Admission: 08/26/18 Attend Phys: Maikel Song, Discharge: Date of : 45 Date of Service: 08/29/18 1646 Report #: [id number] Pericardium There is no pericardial effusion. <Conclusion> The left ventricle is normal size. There is normal left ventricular wall thickness. Left ventricular systolic function is normal. The left ventricular ejection fraction is within the normal range. LVEF is 55-60%. Grade I - abnormal relaxation pattern. The right ventricle is normal size. The left atrium size is normal. Mild aortic valve sclerosis. No aortic regurgitation is present. There is no aortic valvular stenosis. The mitral valve is normal in structure. The tricuspid valve is normal in structure. IVC is normal in size and collapses >50% with inspiration. There is no pericardial effusion. There is normal LV segmental wall motion. <ELECTRONICALLY SIGNED> By: Felix Davis MD, FACC 08/29/18 1646 164 45 Felix Davis MD, FACC /INF
[2018-08-29 20:00] VITALS: BP 136/73
[2018-08-30] VITALS: BP 123/66
[2018-08-30 04:00] VITALS: BP 132/54
[2018-08-30 05:23] LABS: ABSOLUTE LYMPHOCYTES 0.5 thou/uL (0.8-5.3); ABSOLUTE MONOCYTES 0.3 thou/uL (0.0-1.2); ABSOLUTE NEUTROPHILS 5.3 thou/uL (1.6-8.1); BASOPHILS 0.2 %; HEMOGLOBIN 12.6 gm/dL (12.0-15.0); LYMPHOCYTES 7.9 %; MCH 30.2 pg (26.0-34.0); MCHC 34.1 g/dL (28.0-37.0); MCV 88.5 fL (80.0-100.0); MONOCYTES 4.2 %; MPV 9.1 fl. (7.2-11.1); NUCLEATED RBCS 0 /100WBC; PLATELET COUNT* 186 thou/uL (150-400); POLYS 87.7 %; RBC 4.18 mil/uL (4.20-5.00); RDW-CV 13.4 % (10.5-14.5)
[2018-08-30 06:19] LABS: ALBUMIN 2.6 g/dL (3.4-5.0); CALCIUM 9.4 mg/dL (8.5-10.1); CREATININE 1.2 mg/dL (0.6-1.3); POTASSIUM 3.7 mmol/L (3.5-5.1); TOTAL BILIRUBIN 0.2 mg/dL (<0.1-1.0); TOTAL PROTEIN 5.6 g/dL (6.4-8.2)
[2018-08-30 08:00] VITALS: BP 128/68
[2018-08-30 12:26] VITALS: BP 148/63
[2018-08-30 16:00] VITALS: BP 135/53
[2018-08-30 20:00] VITALS: BP 150/58
[2018-08-31] VITALS: BP 130/51
[2018-08-31 04:00] VITALS: BP 133/62; BP 1338/62
[2018-08-31 05:27] LABS: CALCIUM 8.9 mg/dL (8.5-10.1); CREATININE 0.9 mg/dL (0.6-1.3); POTASSIUM 3.3 mmol/L (3.5-5.1)
[2018-08-31 05:30] LABS: ABSOLUTE LYMPHOCYTES 1.5 thou/uL (0.8-5.3); ABSOLUTE MONOCYTES 0.6 thou/uL (0.0-1.2); ABSOLUTE NEUTROPHILS 4.6 thou/uL (1.6-8.1); BASOPHILS 0.1 %; EOSINOPHILS 0.3 %; HEMATOCRIT 35.7 % (37.0-47.0); HEMOGLOBIN 12.1 gm/dL (12.0-15.0); MCH 29.7 pg (26.0-34.0); MCHC 34.1 g/dL (28.0-37.0); MCV 87.3 fL (80.0-100.0); MONOCYTES 8.7 %; MPV 8.6 fl. (7.2-11.1); NUCLEATED RBCS 0 /100WBC; PLATELET COUNT* 188 thou/uL (150-400); POLYS 68.9 %; RBC 4.09 mil/uL (4.20-5.00); RDW-CV 13.5 % (10.5-14.5); WBC 6.6 thou/uL (4.0-11.0)
[2018-08-31 08:00] VITALS: BP 139/46
[2018-08-31 12:00] VITALS: BP 152/68
[2018-08-31 16:46] VITALS: BP 119/48
[2018-08-31 20:52] VITALS: BP 135/51
[2018-09-01] VITALS (7 sets, daily range): BP systolic 130–148; BP diastolic 54–73
[2018-09-02 04:00] VITALS: BP 103/33
[2018-09-02 09:37] VITALS: BP 137/46
[2018-09-02 12:37] VITALS: BP 141/55
[2018-09-02 16:53] VITALS: BP 122/43
[2018-09-02 21:02] VITALS: BP 139/56
[2018-09-02 23:10] VITALS: BP 128/59
[2018-09-03 04:00] VITALS: BP 125/61
[2018-09-03 08:33] VITALS: BP 143/74
[2018-09-03 12:17] VITALS: BP 126/56
[2018-09-03 15:58] VITALS: BP 122/53
[2018-09-03 20:00] VITALS: BP 144/54
[2018-09-04] VITALS: BP 136/63
[2018-09-04 04:00] VITALS: BP 136/60
[2018-09-04 07:30] VITALS: BP 128/55
[2018-09-04 12:00] VITALS: BP 137/47
[2018-09-04 20:00] VITALS: BP 133/69
[2018-09-05 00:15] VITALS: BP 137/81
[2018-09-05 03:55] VITALS: BP 131/59
[2018-09-05 05:23] LABS: ABSOLUTE LYMPHOCYTES 1.6 thou/uL (0.8-5.3); ABSOLUTE MONOCYTES 1.2 thou/uL (0.0-1.2); BASOPHILS 0.2 %; EOSINOPHILS 0.2 %; HEMATOCRIT 40.5 % (37.0-47.0); HEMOGLOBIN 13.4 gm/dL (12.0-15.0); LYMPHOCYTES 13.8 %; MCH 29.6 pg (26.0-34.0); MCHC 32.9 g/dL (28.0-37.0); MCV 89.7 fL (80.0-100.0); MONOCYTES 10.2 %; MPV 9.3 fl. (7.2-11.1); NUCLEATED RBCS 0 /100WBC; PLATELET COUNT* 206 thou/uL (150-400); POLYS 75.6 %; RBC 4.52 mil/uL (4.20-5.00); RDW-CV 13.4 % (10.5-14.5); WBC 11.9 thou/uL (4.0-11.0)
[2018-09-05 05:41] LABS: CALCIUM 9.5 mg/dL (8.5-10.1); POTASSIUM 4.6 mmol/L (3.5-5.1)
[2018-09-05 08:00] VITALS: BP 131/59
[2018-09-05 10:39] VITALS: BP 131/59
== END 2018-09-05 11:40 | DRG 177 ==
LOC: M.ERS 20:52 → M.TBA-ER 22:24 → M.2W 22:24
PROVIDERS: Internal Medicine; Personal Emergency Response Attendant; ADMIT Internal Medicine
DX: J15.6 Pneumonia due to other Gram-negative bacteria (principal); J96.01 Acute respiratory failure with hypoxia; J44.1 Chronic obstructive pulmonary disease with (acute) exacerbation; R65.10 Systemic inflammatory response syndrome (SIRS) of non-infectious origin without acute organ dysfunction; N39.0 Urinary tract infection, site not specified; J44.0 Chronic obstructive pulmonary disease with (acute) lower respiratory infection; E11.65 Type 2 diabetes mellitus with hyperglycemia; M10.9 Gout, unspecified; Z85.3 Personal history of malignant neoplasm of breast; Z79.82 Long term (current) use of aspirin; Z87.891 Personal history of nicotine dependence; Z79.84 Long term (current) use of oral hypoglycemic drugs; Z79.899 Other long term (current) drug therapy; Z88.8 Allergy status to other drugs, medicaments and biological substances; Z82.5 Family history of asthma and other chronic lower respiratory diseases

== ENCOUNTER 2018-09-20 00:15 | Inpatient (IN) | payer OTHER, MEDICAID ==
[~2018-09-20] VITALS: Ht 165.1 cm; Wt 58.1 kg
[2018-09-20 00:16] VITALS: BP 129/71
[2018-09-20 00:31] LABS: HCO3 22.3 mmol/L (22.0-26.0); PCO2 32.9 mmHg (35.0-45.0); PO2 82.5 mmHg (75.0-100.0); pH 7.449 (7.340-7.450)
[2018-09-20 00:53] LABS: ABSOLUTE BASOPHILS 0.1 thou/uL (0.0-0.2); ABSOLUTE EOSINOPHILS 0.3 thou/uL (0.0-0.7); ABSOLUTE LYMPHOCYTES 1.3 thou/uL (0.8-5.3); ABSOLUTE MONOCYTES 0.4 thou/uL (0.0-1.2); ABSOLUTE NEUTROPHILS 4.1 thou/uL (1.6-8.1); EOSINOPHILS 4.4 %; HEMATOCRIT 37.3 % (37.0-47.0); HEMOGLOBIN 12.5 gm/dL (12.0-15.0); LYMPHOCYTES 21.8 %; MCH 29.7 pg (26.0-34.0); MCHC 33.6 g/dL (28.0-37.0); MCV 88.4 fL (80.0-100.0); MONOCYTES 6.9 %; MPV 8.7 fl. (7.2-11.1); NUCLEATED RBCS 0 /100WBC; PLATELET COUNT* 207 thou/uL (150-400); POLYS 65.9 %; RBC 4.22 mil/uL (4.20-5.00); RDW-CV 13.4 % (10.5-14.5); WBC 6.2 thou/uL (4.0-11.0)
[2018-09-20 00:58] LABS: ANION GAP 8 mmol/L (7-16); BUN 5 mg/dL (7-18); CALCIUM 9.4 mg/dL (8.5-10.1); CHLORIDE 103 mmol/L (98-107); CO2 24 mmol/L (21-32); CREATININE 0.8 mg/dL (0.6-1.3); GLUCOSE 247 mg/dL (70-99); POTASSIUM 3.2 mmol/L (3.5-5.1); SODIUM 135 mmol/L (136-145)
[2018-09-20 01:01] LABS: INR 1.1; PROTIME 10.9 Seconds (9.20-11.50)
[2018-09-20 01:09] LABS: ALBUMIN 2.7 g/dL (3.4-5.0); ALKALINE PHOSPHATASE 139 U/L (46-116); MAGNESIUM 1.6 mg/dL (1.8-2.4); NT-PRO BRAIN NAT PEPTIDE 113 pg/mL (<300); SGOT 9 U/L (15-37); SGPT 15 U/L (30-65); TOTAL BILIRUBIN 0.3 mg/dL (<0.1-1.0); TOTAL PROTEIN 6.2 g/dL (6.4-8.2); TROPONIN-I LEVEL <0.06 ng/mL (<0.06)
[2018-09-20 03:38] VITALS: BP 106/61
--- NOTE | 2018-09-20 03:40 | NUR ---
PT ADMITTED TO FLOOR PER CART ACCOMPANIED BY ER STAFF WITH BELONGINGS. ORIENTED TO ROOM AND CALL LITE. HISTORY OBTAINED AND ASSESSMENT PERFORMED, SEE ADMIT NOTES. RWRIST IV MAG INFUSING PER PUMP. L LIMB ALERT DUE TO METASTATIC BREAST CANCER. L BREAST DISCOLORED DARK REDDISH PURPLE CAULIFLOWER TEXTURE BREAST CANCER GROWTH. PT DENIES PAIN, REQUESTING SNACK AND DRINK. O2 2L, SAT 95% TELE MONITOR ST RATE 108. AOX4, PLEASANT. ABLE TO USE CALL LITE AND MAKE NEEDS KNOWN. BED ALARM ON FOR SAFETY, CALL LITE IN EASY REACH. WILL CONTINUE TO MONITOR.
[2018-09-20 03:48] VITALS: BP 100/50
--- NOTE | 2018-09-20 06:46 | NUR ---
NEW ADMIT THIS MORNING. PT HAS WATCHED TV AND RESTED WITHOUT COMPLAINTS. UP WITH SBA TO BR. ABLE TO USE CALL LITE AND MAKE NEEDS KNOWN. IVF INFUSING PER PUMP. O2 2L. TELE ST.
[2018-09-20 07:45] VITALS: BP 133/61
--- NOTE | 2018-09-20 09:01 | EKG ---
[place] [address] ELECTROCARDIOGRAM REPORT Name: NISHANT VENTURA Room: [address] ADM IN .R.#: [id number] Admission: 09/20/18 Attend Phys: Chase Magallanes MD Discharge: Date of : 45 Report #: [id number] THIS REPORT FOR: //name// [facility] ED Test Date: 2018-09-20 Test Time: 00:29:45 Pat Name: NISHANT VENTURA Department: Room: [facility] Gender: F Site Head: Gina KATE : 1945 Requested By: Dang Schmitt Order Number: [id number] MD: Cj Melgoza Measurements Intervals [place] Rate: 115 P: 79 VT: 162 QRS: 68 QRSD: 98 T: QT: 329 QTc: 455 Interpretive Statements Sinus tachycardia Anteroseptal infarct, old Minimal ST depression, lateral leads Compared to ECG 08/26/2018 21:12:22 Myocardial infarct finding still present Electronically Signed On 09-20-2018 9:01:42 DENTAL CHAIR ASSEMBLER by Cj Melgoza [email or web address] <ELECTRONICALLY SIGNED> By: Cj Melgoza MD, FAC 09/20/18 0901 0029 0029 Cj Melgoza MD, [facility] /EPI
[2018-09-20 12:00] VITALS: BP 143/58
--- NOTE | 2018-09-20 14:25 | NUR ---
SW met with pt to complete initial assessment, introduce self, and SW role. Pt continues to live in an extended stay motel that allows her cats to live with her. Pt may need home oxygen and resources/assistance. SW explained pt to have testing to qualify her for oxygen and if pt meets criteria for oxygen, SW will arrange as needed. SW to continue to follow to assist with safe dc planning.
--- NOTE | 2018-09-20 17:40 | NUR ---
PATIENT HAS BEEN ALERT AND ORIENTED TODAY, VERY PLEASANT. UP WITH STAND BY TO THE RESTROOM, NEEDS HELPS WITH OXYGEN TUBING AND IV POLE. NO COMPLAINTS OF PAIN, SHORTNESS OF AIR WITH EXERTION. APPETITE IS GOOD. CALL LIGHT IS IN REACH, WILL CONTINUE TO MONITOR,
[2018-09-20 20:00] VITALS: BP 122/60
[2018-09-20 23:59] LABS: URINE BILIRUBIN NEGATIVE (Negative); URINE BLOOD NEGATIVE (Negative); URINE CLARITY CLEAR; URINE COLOR YELLOW; URINE GLUCOSE-RANDOM 1+ (Negative); URINE KETONES NEGATIVE (Negative); URINE LEUKOCYTES-REFLEX 1+ (Negative); URINE NITRITE-REFLEX NEGATIVE (Negative); URINE PROTEIN NEGATIVE (Negative); URINE SPECIFIC GRAVITY <= 1.005 (1.005-1.030); URINE UROBILINOGEN 0.2 E.U./dl (0.2-1.0)
[2018-09-21 00:26] LABS: CASTS None Seen /LPF (None Seen); SQUAMOUS 0-3 Few /LPF (0-3)
[2018-09-21 00:27] LABS: BACTERIA-REFLEX 1-9 Few /HPF (None Seen); CRYSTALS None Seen /LPF (None Seen); URINE RBC 0-2 Rare /HPF (0-2); URINE WBC-REFLEX 6-15 Few /HPF (0-5); YEAST-REFLEX Present (None Seen)
[2018-09-21 04:00] VITALS: BP 110/67
[2018-09-21 04:30] LABS: MAGNESIUM 2.4 mg/dL (1.8-2.4)
[2018-09-21 04:36] LABS: POTASSIUM 5.3 mmol/L (3.5-5.1)
--- NOTE | 2018-09-21 06:17 | NUR ---
PT SLEPT FAIRLY WELL OVERNIGHT AFTER RECEIVING AMBIEN AT HS. RFA SL, ZOSYN GIVEN ORDERED. O2 2L SAT 93%. PT DENIES PAIN. REQUESTING SNACK FREQUENTLY WHILE AWAKE, EDUCATION GIVEN ON DIABETIC DIET. UP WITH SBA TO BR TO VOID, SOFT BM OVERNIGHT. TELE ST. AM LABS DRAWN. HS ACCUCHECK 267, INSULIN GIVEN. ABLE TO USE CALL LITE AND MAKE NEEDS KNOWN. CM FOLLOWING TO ASSIST WITH DC PLAN HOME 02 AND HOMEHEALTH/ASSISTANCE. L LIMB ALERT. BED ALARM ON FOR SAFETY OVERNIGHT.
[2018-09-21 08:04] VITALS: BP 153/69
[2018-09-21 10:30] VITALS: BP 143/70
[2018-09-21 11:28] VITALS: BP 136/64
[2018-09-21 14:24] VITALS: BP 128/68
--- NOTE | 2018-09-21 14:50 | NUR ---
CONTINUE TO FOLLOW, MET WITH PT TO DISCUSS DC PLAN. PT STATES SHE WAS AT [facility] A WEEK AND WAS DC'D 'BECAUSE I DIDN'T COOPERATE.' PT STATES SHE PREFERS TO GO HOME AT DC. SHE WAS SET UP WITH HH BUT HADN'T LET THEM COME OUT YET D/T NOT UNDERSTANDING HOW HH WORKED. SHE ALSO GOT A TRILOGY DELIVERED BY [facility] BUT HAS NOT BEEN COMPLIANT. SPOKE WITH KAYLEEN/[facility]. SHE STATED PT WAS DELIVERED TRILOGY BUT ALSO FOUND AT HOME BY THEIR RT TO HAVE A SAT OF 88%, THEY HAVE REQUESTED AN OVERNIGHT SAT STUDY THRU HER PCP BUT SINCE PT IN HOSPITAL, ASKED IF COULD BE DONE HERE. WILL ASK DR. LAI TO [facility] TO FIND OUT WHAT HH PT WAS SET UP WITH. OFFERED A DIFFERENT AGENCY AND PT WAS AGREEABLE. WILL ARRANGE ONCE KNOW AGENCY AND FOLLOW
--- NOTE | 2018-09-21 17:32 | NUR ---
PATIENT RESTING IN BED. PATIENT IS UP AD JACEK TO BEDSIDE COMMODE. PATIENT HAS OXYGEN ON AT 2L/NC WITH EXTENSION TUBING. PATIENT HAS GOOD APPETITE. PATIENT DENIES ANY PAIN. PATIENT DENIES ANY TROUBLE BREATHING. OVERNIGHT OXIMETRY ORDERED FOR TONIGHT. PATIENT DENIES ANY NEEDS AT THIS TIME. CALL LIGHT WITHIN REACH. WILL CONTINUE TO MONITOR.
[2018-09-21 20:45] VITALS: BP 138/80
[2018-09-22] VITALS: BP 146/77
[2018-09-22 04:00] VITALS: BP 144/76
--- NOTE | 2018-09-22 06:08 | NUR ---
PT SLEPT ON AND OFF THIS SHIFT. ASSESSMENT DOCUMENTED. MEDS GIVEN PER E-OCT. IV PATENT. O2 IN PLACE, NOC SLEEP STUDY DONE. PRN ANXIETY MEDS GIVEN PER E-OCT. WILL CONTINUE WITH PLAN OF CARE.
[2018-09-22 08:30] VITALS: BP 140/72
[2018-09-22 12:00] VITALS: BP 142/74
[2018-09-22 16:00] VITALS: BP 142/78
--- NOTE | 2018-09-22 16:52 | NUR ---
[facility] faxed referral and order for oxygen as pt qualifies for need for home oxygen at rest and with activity (continuous) to [facility] with possible dc tomorrow? Raisa messaged SW and accepted referral and will bring tank to hospital tomorrow. Pt preference for [facility] and [facility] to accept referral; SW to send final orders, med list and H & P at time of dc.
--- NOTE | 2018-09-22 18:14 | NUR ---
PATIENT RESTING IN BED. WENT FOR XRAY TODAY, RETURNED TO THE FLOOR. WAS GIVEN ATIVAN FOR ANXIETY DUE TO EXERCISE OXYGEN SATURATION TEST. QUALIFIED FOR AT-HOME OXYGEN. CALL LIGHT WITHIN REACH, STATES NO NEEDS AT THIS TIME, WILL CONTINUE TO MONITOR.
--- NOTE | 2018-09-22 18:26 | NUR ---
REVEIWED AND AGREE WITH CHARTING BY [facility] KASSI ALEXANDER.
[2018-09-22 21:20] VITALS: BP 137/74
[2018-09-23] VITALS: BP 172/84
[2018-09-23 04:00] VITALS: BP 169/90
--- NOTE | 2018-09-23 05:24 | NUR ---
PT SLEPT ON AND OFF THIS SHIFT. ASSESSMENT DOCUMENTED. MEDS GIVEN PER E-OCT. NO REPORTS OF PAIN OR NAUSEA. IV PATENT. ANXIETY MEDS GIVEN PER E-OCT. PT ASKED FOR SEVERAL SNACKS THROUGH NIGHT, PT EDUACATED ON DIET BUT INSISTED ON MULTIPLE PUDDINGS AND JUICES. WILL CONTINUE WITH PLAN OF CARE.
[2018-09-23 06:03] LABS: CALCIUM 9.9 mg/dL (8.5-10.1); CREATININE 1.2 mg/dL (0.6-1.3); MAGNESIUM 2.3 mg/dL (1.8-2.4); POTASSIUM 4.9 mmol/L (3.5-5.1)
[2018-09-23 07:46] LABS: HEMATOCRIT 35.2 % (37.0-47.0); HEMOGLOBIN 11.6 gm/dL (12.0-15.0); MCH 29.7 pg (26.0-34.0); MCV 89.9 fL (80.0-100.0); RBC 3.92 mil/uL (4.20-5.00); RDW-CV 12.9 % (10.5-14.5); WBC 7.4 thou/uL (4.0-11.0)
[2018-09-23 08:15] VITALS: BP 139/77
[2018-09-23 12:00] VITALS: BP 160/74
--- NOTE | 2018-09-23 15:57 | NUR ---
Pt likely to dc home tomorrow, Sunday 09/24. Pt to dc home alone and had agreed to HH services through [facility] and agency has pt face sheet. Final orders, med list and H & P to be faxed to [facility] at [facility] ph [phone] fax [phone]. Oxygen for home already arranged and Raisa with [facility] delivered to pt today.
[2018-09-23 16:00] VITALS: BP 150/84
[2018-09-23 16:01] VITALS: BP 160/74
--- NOTE | 2018-09-23 16:18 | NUR ---
PATIENT GIVEN PRN ATIVAN THIS AM FOR PANIC ATTACK. PATIENT STATES WHEN SHE GETS OUT OF BED SHE BECOMES SOA. 02 3L NC REMAINED IN PLACE ALL SHIFT, 02 SAT 93%. SCHED RT TREATMENTS. VITALS REMAINED STABLE. WORKED WITH PATIENT ON PURSED LIP BREATHING. PATIENT VERY NON COMPLIANT WITH DIET. CONTINUALLY ASKING FOR PUDDING. INSULIN GIVEN WITH MEALS ORDERED. TURNING SELF IN BED. SCHED IV ABX INFUSED ORDERED. BED ALARM IN PLACE.
[2018-09-24] VITALS: BP 169/80
[2018-09-24 04:00] VITALS: BP 187/91
--- NOTE | 2018-09-24 04:38 | NUR ---
PATIENT AWAKE MOST OF THE NIGHT WANTING TO EAT VANILLA PUDDING. BLOOD SUGAR AND DIETARY INFORMATION DISCUSSED WITH PATIENT. PT'S BLOOD SUGAR AT 2100 = 104; NO INSULIN NEEDED. PT ON O2 @ 3 LITERS PER NASAL CANNULA. LUNG SOUNDS DIMINISHED, LABORED WITH WHEEZES. PT IN SR ON COKE DRAWER HAND. PT DENIES PAIN ON THIS SHIFT. PT UP TO BSC TO VOID. FREQUENTLY USED ITEMS AND CALL LIGHT WITHIN REACH. SIDERAILS UP X2. WILL CONTINUE TO MONITOR.
[2018-09-24 06:00] VITALS: BP 162/89
[2018-09-24 08:26] VITALS: BP 113/76
[2018-09-24 15:45] VITALS: BP 126/67
[2018-09-24 16:00] VITALS: BP 156/75
--- NOTE | 2018-09-24 16:08 | NUR ---
0700 ASSUMED CARE OF PT, PT RESTING IN BED WITH EYES CLOSED DURING SHIFT REPORT. 0830 ASSESSMENT COMPLETE, PT ABLE TO MAKE NEEDS KNOWN. FREQUENT COMPLAINTS OF SOA, REMAINS ON 3L 02 VIA NC, ASSISTED PT WITH REPOSITIONING, 02 @ 95%. BLOOD GLUCOSE EXTREMELY LOW AT 34, PT ASYMPTOMTIC. ORANGE JUICE X3 GIVEN WELL VANILLA PUDDING. RECHECK PT 47, APPLE JUICE GIVEN. RECHECK BG 70, WILL CONT TO MONITOR. PT CONT ON IV ABT, TOLERATING WELL, NO S/S OF ADVERSE REACTIONS NOTED. HOURLY ROUNDING MAINTAINED.
--- NOTE | 2018-09-24 18:32 | NUR ---
PT BLOOD GLUCOSE ELEVATED AT 291, INSULIN DISCONTINUED BY , [facility] OF HIGH SUGARS. NO NEW ORDERS AT THIS TIME, WILL CONT TO MONITOR. PT IN BED WATCHING TELEVISION, VS WNL. [address] CHAMPAGNE REGARDING BG READING. RESUME GLYBURIDE BID, NO NEW ORDERS FOR INSULIN AT THIS TIME. CONT TO MONITOR
[2018-09-25] VITALS: BP 107/52
[2018-09-25 04:24] LABS: ABSOLUTE LYMPHOCYTES 0.9 thou/uL (0.8-5.3); ABSOLUTE MONOCYTES 0.8 thou/uL (0.0-1.2); ABSOLUTE NEUTROPHILS 5.3 thou/uL (1.6-8.1); BASOPHILS 0.1 %; EOSINOPHILS 0.2 %; LYMPHOCYTES 12.4 %; MCH 29.5 pg (26.0-34.0); MCHC 32.4 g/dL (28.0-37.0); MCV 90.9 fL (80.0-100.0); MPV 9.1 fl. (7.2-11.1); NUCLEATED RBCS 0 /100WBC; PLATELET COUNT* 191 thou/uL (150-400); POLYS 75.3 %; RDW-CV 13.2 % (10.5-14.5); WBC 7.1 thou/uL (4.0-11.0)
[2018-09-25 04:25] VITALS: BP 138/68
[2018-09-25 05:18] LABS: ANION GAP < 0 mmol/L (7-16); BUN 23 mg/dL (7-18); CALCIUM 9.7 mg/dL (8.5-10.1); CHLORIDE 96 mmol/L (98-107); CO2 28 mmol/L (21-32); GLUCOSE 215 mg/dL (70-99); MAGNESIUM 2.2 mg/dL (1.8-2.4); POTASSIUM 4.6 mmol/L (3.5-5.1); SODIUM 121 mmol/L (136-145)
--- NOTE | 2018-09-25 05:18 | NUR ---
PATIENT AWAKE MOST OF THE NIGHT WANTING PUDDING AND ATIVAN. PT ANXIOUS AND TEARFUL AT BEGINNING OF SHIFT BUT CALMED LATER. PT CALLING EMT I/85 LIGHT EVERY Q30M TO HAVE ASSISTANCE WITH TV, COVERS STRAIGHTENED, PUDDING, ETC., BUT WOULD BE DOSING WHEN STAFF ENTERED THE ROOM. PT HAS BEEN ENCOURAGED TO EAT PEANUT BUTTER AND SARAH CRACKERS INSTEAD OF JUST PUDDING. PT UP TO BSC WITH STANDBY, VOIDS YELLOW URINE. PT ON O2 @ 3 LITERS PER NASAL CANNULA BUT EXTREMELY SOA WITH EXERTION. PT WITH DIMINISHED LUNG SOUNDS. BLOOD SUGAR AT 2100 = 382; NO TX ORDERED. PT HAS SALINE LOCK IN RT FOREARM. PT IS SINUS TACH ON GARMENT PATTERNMAKER. FREQUENTLY USED ITEMS AND CALL LIGHT WITHIN REACH. SIDERAILS UPX2 AND BED ALARM ON. WILL CONTINUE TO MONITOR.
[2018-09-25 08:00] VITALS: BP 154/55
[2018-09-25 11:00] VITALS: BP 140/81
[2018-09-25 16:00] VITALS: BP 132/78
--- NOTE | 2018-09-25 20:04 | NUR ---
I ASSUMED CARE OF THE PATIENT AT 0700. SHE IS ALERT AND ORIENTED X4 AND DEMANDING. BED IS IN THE LOW LOCKED POSITION AND CALL LIGHT IS IN REACH. HOURLY ROUNDING IS COMPLETED AND PATIENT NEEDS ARE MET. PAIN IS DENIED. WILL CONTINUE TO MONITOR.
[2018-09-26] VITALS: BP 153/75
[2018-09-26 04:00] VITALS: BP 156/70
[2018-09-26 04:41] LABS: CALCIUM 9.9 mg/dL (8.5-10.1); POTASSIUM 4.7 mmol/L (3.5-5.1)
[2018-09-26 05:02] LABS: ABSOLUTE MONOCYTES 0.7 thou/uL (0.0-1.2); ABSOLUTE NEUTROPHILS 4.5 thou/uL (1.6-8.1); BASOPHILS 0.1 %; EOSINOPHILS 0.4 %; HEMATOCRIT 38.9 % (37.0-47.0); HEMOGLOBIN 12.8 gm/dL (12.0-15.0); LYMPHOCYTES 15.8 %; MCH 29.4 pg (26.0-34.0); MCV 89.1 fL (80.0-100.0); MONOCYTES 11.6 %; MPV 8.7 fl. (7.2-11.1); NUCLEATED RBCS 0 /100WBC; PLATELET COUNT* 224 thou/uL (150-400); POLYS 72.1 %; RBC 4.36 mil/uL (4.20-5.00); RDW-CV 13.1 % (10.5-14.5); WBC 6.2 thou/uL (4.0-11.0)
--- NOTE | 2018-09-26 06:58 | NUR ---
PATIENT MOVED FROM ROOM 308 TO 312 TO BE CLOSER TO NURSES STATION. PT WAS CALM/COOOPERATIVE LAST NIGHT AND NOT CONFUSED. PT SLEPT HALF OF THE NIGHT. PT ON O2 @ 3 LITERS PER NASAL CANNULA. PT WITH FLUIDS INFUSING PER DR ORDER. PT UP TO BSC WITH STANDBY ASSIST. PT SAYS SHE WOULD LIKE TO GO HOME TODAY. FREQUENTLY USED ITEMS AND CALL LIGHT WITHIN REACH. SIDERAILS UP X4 AND BED ALARM ON. WILL CONTINUE TO MONITOR.
[2018-09-26 07:30] VITALS: BP 144/69
[2018-09-26 12:11] VITALS: BP 143/77
[2018-09-26] MEDS ORDERED: PREDNISONE 10 M10 M1 PO (12:51)
[2018-09-26] MEDS ORDERED: LEVAQUIN 750 M750 MG PO (12:52)
--- NOTE | 2018-09-26 15:10 | NUR ---
Pt to dc home today. [facility] faxed needed info and orders to [facility] and spoke with intake to finalize pt to dc home today; services to begin tomorrow. [facility] faxed updated testing to [facility] for oxygen, tank already here for pt to dc home with the oxygen needed. Pt to have a cab ride home.
[2018-09-26 15:13] VITALS: BP 126/75
--- NOTE | 2018-09-26 16:41 | NUR ---
PATIENT UP AND AMBULATED AROUND ROOM WITH STAFF AND WALKER THIS SHIFT. 02 3L NC REMAINED IN PLACE. PATIENT QUALIFIED FOR HOME 02. HOME HEALTH ORDERED. IVF AND ABX INFUSED ORDERED. PATIENT SCRIPTS CALLED INTO [facility] PER REQUEST. CAB VOUCHER PROVIDED AND PATIENT ESCORTED OUT IN WHEELCHAIR WITH STAFF. ALL BELONGINGS WITH PATIENT.
--- NOTE | 2018-09-26 18:00 | NUR ---
I AGREE WITH CHARTED REASSESSMENT FROM CATHERINE SOLITARIO
== END 2018-09-26 16:43 | disposition home health service (06) | DRG 177 ==
LOC: M.ERS 00:15 → M.TBA-ER 02:42 → M.3W 02:42
PROVIDERS: Internal Medicine; Personal Emergency Response Attendant; ADMIT Family Medicine
DX: J15.6 Pneumonia due to other Gram-negative bacteria (principal); R65.11 Systemic inflammatory response syndrome (SIRS) of non-infectious origin with acute organ dysfunction; N17.0 Acute kidney failure with tubular necrosis; J96.21 Acute and chronic respiratory failure with hypoxia; J44.1 Chronic obstructive pulmonary disease with (acute) exacerbation; J44.0 Chronic obstructive pulmonary disease with (acute) lower respiratory infection; J40 Bronchitis, not specified as acute or chronic; Z66 Do not resuscitate; N18.2 Chronic kidney disease, stage 2 (mild); E11.22 Type 2 diabetes mellitus with diabetic chronic kidney disease; F41.9 Anxiety disorder, unspecified; M10.9 Gout, unspecified; Z85.3 Personal history of malignant neoplasm of breast; Z87.891 Personal history of nicotine dependence; Z79.51 Long term (current) use of inhaled steroids; Z79.82 Long term (current) use of aspirin; Z79.899 Other long term (current) drug therapy; Z88.8 Allergy status to other drugs, medicaments and biological substances; Z82.5 Family history of asthma and other chronic lower respiratory diseases

== ENCOUNTER 2018-09-29 20:27 | Inpatient (IN) | payer OTHER, MEDICAID ==
[~2018-09-29] VITALS: Ht 165.1 cm; Wt 56.2 kg
[~2018-09-29 20:27] MED LIST changes: +LEVAQUIN 750 M750 MG PO; +PREDNISONE 10 M10 M1 PO
[2018-09-29 20:31] VITALS: BP 129/66
[2018-09-29 21:07] LABS: ABSOLUTE EOSINOPHILS 0.1 thou/uL (0.0-0.7); ABSOLUTE LYMPHOCYTES 1.7 thou/uL (0.8-5.3); ABSOLUTE MONOCYTES 0.9 thou/uL (0.0-1.2); ABSOLUTE NEUTROPHILS 5.7 thou/uL (1.6-8.1); BASOPHILS 0.4 %; EOSINOPHILS 1.1 %; HEMATOCRIT 42.4 % (37.0-47.0); HEMOGLOBIN 13.9 gm/dL (12.0-15.0); MCH 29.4 pg (26.0-34.0); MCHC 32.8 g/dL (28.0-37.0); MCV 89.7 fL (80.0-100.0); MONOCYTES 10.8 %; MPV 8.5 fl. (7.2-11.1); NUCLEATED RBCS 0 /100WBC; PLATELET COUNT* 224 thou/uL (150-400); POLYS 67.7 %; RBC 4.73 mil/uL (4.20-5.00); RDW-CV 13.4 % (10.5-14.5); WBC 8.5 thou/uL (4.0-11.0)
[2018-09-29 21:12] LABS: APTT 24.7 Seconds (25.0-31.3); INR 1.1; PROTIME 11.3 Seconds (9.20-11.50)
[2018-09-29 21:13] LABS: ANION GAP 7 mmol/L (7-16); BUN 16 mg/dL (7-18); CALCIUM 9.7 mg/dL (8.5-10.1); CHLORIDE 97 mmol/L (98-107); CO2 27 mmol/L (21-32); CREATININE 1.1 mg/dL (0.6-1.3); GLUCOSE 389 mg/dL (70-99); POTASSIUM 3.9 mmol/L (3.5-5.1); SODIUM 131 mmol/L (136-145)
[2018-09-29 21:23] LABS: ALBUMIN 3.3 g/dL (3.4-5.0); ALKALINE PHOSPHATASE 145 U/L (46-116); LIPASE 134 U/L (73-393); MAGNESIUM 2.1 mg/dL (1.8-2.4); NT-PRO BRAIN NAT PEPTIDE 324 pg/mL (<300); SGOT 13 U/L (15-37); SGPT 24 U/L (30-65); TOTAL BILIRUBIN 0.4 mg/dL (<0.1-1.0); TOTAL PROTEIN 6.6 g/dL (6.4-8.2); TROPONIN-I LEVEL <0.06 ng/mL (<0.06)
[2018-09-29 22:45] VITALS: BP 141/62
[2018-09-29 23:00] VITALS: BP 151/76
[2018-09-30 04:00] VITALS: BP 116/53
--- NOTE | 2018-09-30 07:32 | NUR ---
VITALS WNL. SEE MAR, SEE CHARTING. FALL PRECAUTIONS IN PLACE. HOURLY ROUNDING FOR SAFETY.
[2018-09-30 08:20] VITALS: BP 126/58
--- NOTE | 2018-09-30 09:35 | EKG ---
[place] [address] ELECTROCARDIOGRAM REPORT Name: NISHANT VENTURA Room: [address] ADM IN .R.#: [id number] Admission: 09/29/18 Attend Phys: Jose Angel Aquino MD Discharge: Date of : 45 Report #: [id number] THIS REPORT FOR: //name// [facility] ED Test Date: 2018-09-29 Test Time: 20:40:09 Pat Name: NISHANT VENTURA Department: Room: [facility] Gender: F Territory Service Representative: : 1945 Requested By: Darell Burrell Order Number: [id number] MD: Cj Melgoza Measurements Intervals [place] Rate: 123 P: 91 IN: 155 QRS: 72 QRSD: 92 T: 6 QT: 317 QTc: 454 Interpretive Statements Sinus tachycardia Probable left atrial enlargement Probable left ventricular hypertrophy with repolarization changes Compared to ECG 09/20/2018 00:29:45 LEFT VENTRICULAR HYPERTROPHY now seen Electronically Signed On 09-30-2018 9:34:52 SUPERVISOR EDUCATION by Cj Melgoza [email or web address] <ELECTRONICALLY SIGNED> By: Cj Melgoza MD, FAC 09/30/18 0934 39 39 Cj Melgoza MD, [facility] /EPI
--- NOTE | 2018-09-30 11:26 | NUR ---
INITIAL ASSESSMENT: CM SPK W/PT, D/C PLANNING, & TO EDU OF CM ROLE. A&O. DME: WALKER AND HOME O2. MINIMAL FAMILY SUPPORT. HAS A ELDERLY FRIEND THAT DRIVES HER, BUT D/T WEATHER CONDITION WASNT ABLE TO ASSIST W/GETTING MEDS LAST D/C ON 09/26/18. NORMALLY INDEPENDENT W/ADLS. PT RTRN TO HOSPITAL D/T ANXIETY B/C SHE FELT IF SHE COULDNT BREATHE. PT ON [facility] W/[facility]. [facility] W/[facility] & HE CONFIRMED THEY PLAN TO CONT SERVICE WHEN PT D/C. ORDERS TO RESUME HH WILL NEED TO BE FAXED @ TIME D/C. PT WILL ALSO NEED TANK TO TRAVEL HOME WHEN D/C; & CONTACT [facility] TO ASSIST W/O2 TANK. CM WILL CONT TO FOLLOW/ASSIST PRN. [facility] - PHONE- [phone]/ FAX [phone]
--- NOTE | 2018-09-30 11:45 | NUR ---
RECEIVED REPOORT FROM WILL AND ASSUMED CARE OF PT @ 0730.PT IS A/OX4,VSS,TRACING ST ON THE MONITOR.PT REMAINS ON 2L O2 NC.IV D/C DUE TO INFILTRATION.NEW IV INSERTED-RIGHT FOREARM.IV ANTIBIOTICS GIVEN.PT BLOOD GLUCOSE ELEVATED @ >500.DOCTOR NOTIFIED WITH NEW ORDERS.PT IS CALM AND COOPERATIVE WITH NO C/O PAIN.PT LEFT RESTING IN BED WITH CALL LIGHT AND FALL PRECAUTIONS IN PLACE.WILL CONTINUE TO MONITOR.
[2018-09-30 11:58] VITALS: BP 129/51
[2018-09-30 16:48] VITALS: BP 133/58
--- NOTE | 2018-09-30 17:39 | NUR ---
VSS.CARDIAC MONITORING IN PLACE WITH NO CHANGES.PT REMAINS ON 4L O2 NC.NO C/O PAIN.IV PATENT AND SALINE LOCKED.IV ANTIBIOTICS GIVEN.PT INFORMED OF PLAN OF CARE AND COMMUNICATES UNDERSTANDING.PT AMBULATED TO BATHROOM WITH ASSISTANCE.HOURLY ROUNDING COMPLETED FOR PT SAFETY.CALL LIGHT AND FALL PRECAUTIONS IN PLACE.WILL CONTINUE TO MONITOR FOR DURATION OF SHIFT.
[2018-09-30 20:40] VITALS: BP 148/86
[2018-10-01] VITALS: BP 134/63
[2018-10-01 04:00] VITALS: BP 130/59
--- NOTE | 2018-10-01 05:08 | NUR ---
PT CARE ASSUMED AT 1930. SAT MAINTAINED IN 4L NC. ALERT AND ORIENTED X4 BUT FORGETFUL. PT IS ANXIOUS AND IMPULSIVE. SOB WITH EXERTION. CALL LIGHT WITHIN REACH AND BED IN LOW POSITION. HOURLY ROUNDING DONE FOR PT SAFETY.
[2018-10-01 05:12] LABS: HEMATOCRIT 34.4 % (37.0-47.0); MCH 29.7 pg (26.0-34.0); MCHC 33.1 g/dL (28.0-37.0); MCV 89.7 fL (80.0-100.0); MPV 9.2 fl. (7.2-11.1); NUCLEATED RBCS 0 /100WBC; PLATELET COUNT* 222 thou/uL (150-400); RBC 3.84 mil/uL (4.20-5.00); RDW-CV 13.4 % (10.5-14.5); WBC 11.4 thou/uL (4.0-11.0)
[2018-10-01 05:20] LABS: HEMOGLOBIN 11.4 gm/dL (12.0-15.0)
[2018-10-01 05:25] LABS: CALCIUM 9.3 mg/dL (8.5-10.1); CREATININE 1.4 mg/dL (0.6-1.3)
[2018-10-01 06:14] LABS: ABSOLUTE LYMPHOCYTES 0.5 thou/uL (0.8-5.3); ABSOLUTE MONOCYTES 0.3 thou/uL (0.0-1.2); ABSOLUTE NEUTROPHILS 10.6 thou/uL (1.6-8.1)
[2018-10-01 06:15] LABS: PLATELET ESTIMATE ADEQUATE; TOXIC GRANULATION 1+
[2018-10-01 08:10] VITALS: BP 156/71
--- NOTE | 2018-10-01 10:49 | NUR ---
RECEIVED REPORT FROM BRAYDEN AND ASSUMED CARE OF PT @ 3719.PT IS A/O X4 BUT FORGETFUL AND IMPULSIVE.PT REMAINS ON 4L O2 NC.IV PATENT AND SALINE LOCKED.IV ANTIBIOTICS GIVEN.PT IS CALM AND COOPERATIVE WITH NO C/O PAIN.PT CALLS OUT OFTEN.PT LEFT RESTING IN BED WITH CALL LIGHT AND FALL PRECAUTIONS IN PLACE.WILL CONTINUE TO MONITOR.
[2018-10-01 12:53] VITALS: BP 125/63
--- NOTE | 2018-10-01 14:28 | CON ---
[address] [address] CONSULTATION Name: NISHANT VENTURA Room: [address] IN M.R.#: [id number] Admission: 09/29/18 Attend Phys: Jose Angel Aquino MD Discharge: Date of : 45 Report #: [id number] THIS REPORT FOR: //name// CC: Jose Angel Aquino Phong Salazar DATE OF SERVICE: 09/30/2018 REASON FOR CONSULTATION: Breast cancer. REQUESTING PHYSICIAN: Jose Angel Aquino MD HISTORY OF PRESENT ILLNESS: The patient is a 73-year-old woman who is admitted to the hospital with COPD exacerbation and pleural effusion. She had on initial presentation this pleural effusion in 04/2018. At that time, she had thoracentesis. Cytology was positive for malignant cells, compatible with breast as per primary, ER positive, SD positive. The patient has a history of breast cancer diagnosed in 2012. At that time, she had a lumpectomy for ER positive tumor. She declined any further therapy. She did have appointment with me in 2012, but did not show up. The patient did not have any adjuvant radiation, appropriate surgery and adjuvant hormonal therapy. She presents now with metastatic breast cancer. She noticed local recurrence of breast cancer. She noticed "a red bump" on the left breast more than a year ago, but she said "____ was not purple." Gradually mass grew and now she has had admissions to the hospital with shortness of breath and pleural effusion. Oncology consult is requested for recommendations regarding treatment options and prognosis. She tells me she was not interested in radiation, she is not interested in chemotherapy and she does not have complaints of headaches or bone pain. She does not think she has particular complaints of shortness of breath. PAST MEDICAL HISTORY: Significant for breast cancer, COPD, diabetes, gout. SOCIAL HISTORY: She lives alone in extended care facility. She does not have any family members ____. She has 50 pack-year history of smoking. Does not smoke now. PHYSICAL EXAMINATION: GENERAL: Reveals thin elderly woman, chronically ill appearing. VITAL SIGNS: Blood pressure 129/51, heart rate is 109, temperature 98.8, respirations 18. HEENT: Does not reveal thrush. NECK: There is no supraclavicular lymphadenopathy. BREASTS: Left breast exam reveals large mass causing deformity of breast. LUNGS: Decreased breath sounds bilaterally. ABDOMEN: Soft. EXTREMITIES: [place] [address] CONSULTATION Name: NISHANT VENTURA Room: [address]#: [id number] Admission: 09/29/18 Attend Phys: Jose Angel Aquino MD Discharge: Date of : 45 Report #: [id number] MENTAL STATUS: Alert and oriented x 3. LABORATORY DATA: White count 8.2, hemoglobin 13.9. Sodium 131, potassium 3.9, BUN 16, creatinine 1.1, ALT of 24, alkaline phosphatase 145. Chest x-ray shows persistent bilateral pleural effusion, mild, unchanged. ASSESSMENT AND PLAN: Metastatic breast cancer, had a very long discussion regarding prognosis and treatment options of stage IV breast cancer. She clearly has a non-curable disease. She is not interested in any chemotherapy. She is not interested in any cancer therapy. I discussed with her possibility of PleurX catheter placement if she requires it. At this point, she does not seem to have frequent recurrent pleural effusions. I recommend to consider taking anastrozole. Tumor is ER positive, it could response to anastrozole. This can improve her quality of life. She thinks she might consider it. PLAN: I offered her to follow up with me. If she is interested, I am trying to make an appointment with her on 10/11/2018. Thank you very much for allowing me to participate in the care of this patient. <ELECTRONICALLY SIGNED> By: Marie Link MD 10/01/18 1428 1230 [id number] Jenkins MD /nt
--- NOTE | 2018-10-01 18:43 | NUR ---
VSS.CARDIAC MONITORING IN PLACE WITH NO CHANGES.PT REMAINS ON 4L O2 NC.NO IV ACCESS-DUE TO INFILTRATION.NO C/O PAIN.PT RECEIVED ATIVAN PRN FOR ANXIETY RELATED TO PROGNOSIS OF DISEASE.PT INFORMED OF PLAN OF CARE AND COMMUNICATES UNDERSTANDING.HOURLY ROUNDING COMPLETED FOR PT SAFETY.CALL LIGHT AND FALL PRECAUTIONS IN PLACE.WILL CONTINUE TO MONITOR FOR DURATION OF SHIFT.
[2018-10-01 20:30] VITALS: BP 134/66
[2018-10-02] VITALS (7 sets, daily range): BP systolic 114–163; BP diastolic 57–80
--- NOTE | 2018-10-02 04:48 | NUR ---
PT CARE ASSUMED AT 1930. SAT MAINTAINED IN 4L NC. ALERT AND ORIENTED X4, FORGETFUL AT TIMES. PT IS IMPULSIVE AND ANXIOUS. CALL LIGHT WITHIN REACH AND BED IN LOW POSITIION. DENIES PAIN. SOB WITH EXERTION. HOURLY ROUNDING DONE FOR PT SAFETY.
[2018-10-02 05:21] LABS: HEMATOCRIT 34.5 % (37.0-47.0); HEMOGLOBIN 11.4 gm/dL (12.0-15.0); MCH 29.6 pg (26.0-34.0); MCHC 33.1 g/dL (28.0-37.0); MCV 89.4 fL (80.0-100.0); MPV 8.9 fl. (7.2-11.1); RBC 3.86 mil/uL (4.20-5.00); RDW-CV 13.7 % (10.5-14.5); WBC 13.5 thou/uL (4.0-11.0)
[2018-10-02 05:37] LABS: CALCIUM 9.7 mg/dL (8.5-10.1); MAGNESIUM 2.2 mg/dL (1.8-2.4); POTASSIUM 4.1 mmol/L (3.5-5.1)
--- NOTE | 2018-10-02 08:25 | NUR ---
RECIEVED REPORT FROM BRAYDEN AND ASSUMED CARE OF PT @ 9340.PT IS A/O X4 BUT FORGETFUL AT TIMES.PT IS IMPULSIVE AND ANXIOUS AT TIMES.PT REMAINS ON 4L O2 NC.NO IV ACCESS. NO C/O PAIN.PT IS UP WITH ONE ASSIST TO THE BATHROOM.PT LEFT RESTING IN BED WITH CALL LIGHT AND FALL PRECAUTIONS IN PLACE.WILL CONTINUE TO MONITOR.
--- NOTE | 2018-10-02 18:20 | NUR ---
VSS.CARDIAC MONITORINIG IN PLACE WITH NO CHANGES THIS SHIFT.PT REMAINS ON 4L O2.NO C/O PAIN.NO IV ACCESS.PT PROGRESSING TOWARDS GOALS.PT INFORMED OF PLAN OF CARE AND COMMUNICATES UNDERSTANDING.HOURLY ROUNDING COMPLETED FOR PT SAFETY.CALL LIGHT AND FALL PRECAUTIONS IN PLACE.WILL CONTINUE TO MONITOR FOR DURATION OF SHIFT.PT TO HAVE OVERNIGHT OXIMETERY- RT NOTIFIED.
[2018-10-03 04:00] VITALS: BP 131/68
--- NOTE | 2018-10-03 05:03 | NUR ---
PT CARE ASSUMED AT 1930. SAT MAINTAINED IN 1L NC BUT C/O SOB, TITRATED TO 3L NC. ALERT AND ORIENTED X4 , FORGETFUL AT TIMES. EDUCATED ON CARB CONTROL DIET, PT NON COMPLIANT. PT IS ANXIOUS, MEDICATION GIVEN PER EMAR. CALL LIGHT WITHIN REACH AND BED IN LOW POSITION. HOURLY ROUNDING DONE FOR PT SAFETY.
[2018-10-03 08:00] VITALS: BP 134/65
[2018-10-03 12:00] VITALS: BP 118/57
--- NOTE | 2018-10-03 12:16 | NUR ---
CONTINUE TO FOLLOW, MET WITH PT. TALKED WITH HER ABOUT HOME SITUATION THAT WAS REPORTS BY HH/[facility] (THERE WERE FECES ALL OVER ROOM AND BATHROOM AND WAS UNSANITARY FOR NURSE TO STAY AND CARE FOR PT) PT STATES SHE HAD 'DIARRHEA' PRIOR TO READMIT. PT WAS ONLY HOME ABOUT 3 DAYS FROM HOSPITAL BEFORE READMITTED. SHE HAS HAD MONTHLY ADMITS SINCE MAY AND 2 SNF STAYS. TALKED WITH HER ABOUT SNF AGAIN AND ALSO WHETHER SHE HAD CONSIDERED A DIFFERENT LIVING SITUATION. PT HAS SEVERAL CATS AND WANTS TO BE HOME WITH THEM. STRESSED TO HER THAT SHE NEEDS TO BE ABLE TO CARE FOR HERSELF FIRST IN ORDER TO CARE FOR HER CATS. SHE DID STATE HER FRIEND 'ANTOINE' WAS CLEANING UP HER ROOM FOR HER AND CARING FOR HER CATS. SHE ALSO STATED HER SISTER/TRACI IS ON HER WAY TO VISIT FROM [place]. CALL TO TRACI, SHE WILL BE HERE TONIGHT OR TOMORROW. REVIEWED CONVERSATION WITH HER THAT CM HAD WITH PT AND ASKED THAT SHE HELP PT WITH DECISION MAKING. SHE VOICED THAT SHE THOUGHT PT WANTS TO GO HOME WITH HER CATS AND ALSO SHE WAS COMING TO SEE PT BECAUSE SHE THOUGHT IT MIGHT BE 'THE LAST TIME I SEE HER.' PT HAS SISTER IN [place] ALSO BUT SHE DOESN'T 'DEAL WITH HER'. PT WAS SURPRISED WHEN CM REVIEWED [facility] HOSPITAL VISITS, ASKED THAT THEY BE WRITTEN DOWN, DONE. ALSO ENCOURAGED PT AGAIN TO CONSIDER FILLING OUT A DPOA, GAVE FORM. BRIEFLY DISCUSSED PALLIATIVE CARE, PT OVERWHELMED. WILL TALK WITH HER AGAIN TOMORROW. SHE DID STATE HER MEDICAID PAPERWORK WAS DUE 09/30, HAVE ASKED [facility] TO ASSIST
[2018-10-03 12:40] LABS: ABSOLUTE LYMPHOCYTES 1.1 thou/uL (0.8-5.3); ABSOLUTE MONOCYTES 0.6 thou/uL (0.0-1.2); ABSOLUTE NEUTROPHILS 8.5 thou/uL (1.6-8.1); BASOPHILS 0.1 %; EOSINOPHILS 0.1 %; HEMOGLOBIN 11.6 gm/dL (12.0-15.0); LYMPHOCYTES 10.9 %; MCH 29.6 pg (26.0-34.0); MCHC 33.2 g/dL (28.0-37.0); MCV 89.1 fL (80.0-100.0); MPV 8.4 fl. (7.2-11.1); NUCLEATED RBCS 0 /100WBC; PLATELET COUNT* 206 thou/uL (150-400); POLYS 82.9 %; RBC 3.93 mil/uL (4.20-5.00); RDW-CV 13.7 % (10.5-14.5); WBC 10.2 thou/uL (4.0-11.0)
[2018-10-03 12:51] LABS: ALBUMIN 2.7 g/dL (3.4-5.0); CALCIUM 9.4 mg/dL (8.5-10.1); POTASSIUM 4.3 mmol/L (3.5-5.1); TOTAL BILIRUBIN 0.2 mg/dL (<0.1-1.0); TOTAL PROTEIN 5.5 g/dL (6.4-8.2)
[2018-10-03 16:00] VITALS: BP 98/53
--- NOTE | 2018-10-03 18:57 | NUR ---
RECEIVED REPORT FROM BRAYDEN SALGADO. ASSUMED CARE OF PT AROUND 0730. PT A&O X4 BUT FORGETFUL AT TIMES. VSS. BP A BIT LOW THIS AFTERNOON, SEE CHARTING. STOCK CHASER IN PLACE TRACING SR TO ST THIS SHIFT WITH NO CHAGNES. NEW IV STARTED IN RIGHT FA FOR ANTIBIOTIC ADMINISTRATION. PT ABLE TO AMBULATE IN HALLWAY WITH PT. PT UP TO BEDSIDE COMMODE WITH ASSIST X1 MULTIPLE TIMES THIS SHIFT TO VOID; PT HAD 2 BM'S. PT CHOKED ON PIECE OF CHICKEN DURING LUNCH - DIET CHANGED TO MECHANICAL ALTERED GROUND. PT O2 SATURATION 100% ON 3L, BUT PT COMPLAINING OF FEELING SOA AND INSITED THAT O2 BE TURNED UP TO 4L PER NC. EDUCATION GIVEN BUT PT CONTINUING TO REFUSE TO ALLOW O2 TO BE TURNED DOWN. PT ALSO REFUSING SOME TURNS THIS SHIFT. EDUCATED ON IMPORTANCE OF TURNING TO PRESERVE SKIN INTEGRITY. PT COMMMUNICATES UNDERSTANDING BUT STILL PREFERS TO LIE ON BACK. PT CURRENTLY RESTING IN BED. CALL LIGHT IS WITHIN REACH. FALL PRECAUTIONS ARE IN PLACE. HOURLY ROUNDING PERFORMED. WCTM FOR DURATION OF SHIFT.
[2018-10-03 20:09] VITALS: BP 109/63
[2018-10-04 00:42] VITALS: BP 111/57
[2018-10-04 04:00] VITALS: BP 98/52
--- NOTE | 2018-10-04 05:29 | NUR ---
ASSUMED PT CARE AT 1930. NURSING ASSESSMENT COMPLETED AT START OF SHIFT. SR/ST ON FIBERGLASS BOAT PARTS FINISHER. PT CONTINUES TO BE NONCOMPLIANT WITH Q2H REPOSITIONING, EDUCATION PROVIDED, PT VOICED UNDESTANDING. NONCOMPLIANT WITH DIET, REQUESTS PUDDING, OJ AND APPLE JUICE THROUGHOUT THE NIGHT. PT EDUCATED ON IMPORTANCE OF CARB CONTROLLED DIET AND VOICED UNDESTANDING. HOURLY ROUNDING COMPLETED, CALL LIGHT WITHIN REACH. VOICES NO CONCERNS THIS SHIFT.
[2018-10-04 08:00] VITALS: BP 104/55
--- NOTE | 2018-10-04 08:00 | NUR ---
ASSUMED CARE OF PT ASSESSED AND DOCUMENTED. PT IS A&O WITH NO C/O PAIN. VSS WNL. PT IS AFEBRILE. SHE IS ON 3L OF 02. LUNGS ARE DIMINISHED. PT HAS A DRY NON PRODUCTIVE COUGH. SHE CAN BE ANXIOUS. PT C/O TOO MANY PEOPLE COMING IN THE ROOM IN THE MORNINGS. PT HAS A L LIMB ALERT. SHE IS ON FALL PRECAUTIONS PER FACILITY PROTOCOL. BED IN LOW PODITION CALL LIGHT IN REACH. WM.
--- NOTE | 2018-10-04 11:45 | NUR ---
CONTINUE TO FOLLOW, MET WITH PT WITH DR STARK, ANTICIPATE DC TOMORROW AND IS REC: SNF AND POSSIBLE LTC. PT WANTS TO BE ABLE TO RETURN HOME BUT IS OPEN TO SNF. DISCUSSED OPTIONS AND ENCOURAGED PT TO KEEP AN OPEN MIND ABOUT POSSIBLE NEED FOR LTC. SHE WAS WILLING TO CONSIDER [facility], CALLED AND FAXED REFERRAL TO [facility]. SHE PLANS TO COME OUT TO SEE PT LATER TODAY
[2018-10-04 12:00] VITALS: BP 116/62
[2018-10-04 16:00] VITALS: BP 125/48
--- NOTE | 2018-10-04 17:58 | NUR ---
PT HAS RESTED IN ROOM WATCHING TV AND VISITING WITH SISTER WHO CAME IN FROM [place]. SISTER STATES PT HAS 6 CATS AND THIS IS THE REASON SHE WILL NOT LEAVE [place]. SENT YOU CALL MD POSADAS PTS BS OF [id number]. SS ORDER HAS BEEN CHANGED. PT IS NOT COMPLIANT WITH MEDICATIONS OR DIET. SHE REFUSED METFORMIN STATING IT MADE HER SICK. HAS D/C'D THIS ORDER. EDUCATION GIVEN ON DEMAND. HOURLY ROUNDING CONTINUES.
[2018-10-04 19:45] VITALS: BP 122/61
[2018-10-05] VITALS: BP 113/52
[2018-10-05 04:00] VITALS: BP 134/63
--- NOTE | 2018-10-05 05:02 | NUR ---
ASSUMED PT CARE AT 1930. SENIOR NET ENGINEER IN PLACE, TRACING SINUS TACHYCARDIA/SINUS RHYTHM THIS SHIFT. PT CONTINUES TO BE NONCOMPLIANT WITH DIET IN SPITE OF PT EDUCATION. PT ANXIOUS THIS SHIFT, PRN XANAX ADIMISTERED X1. HOURLY ROUNDING COMPLETED, CALL LIGHT WITHIN REACH.
[2018-10-05 08:00] VITALS: BP 142/61
--- NOTE | 2018-10-05 11:29 | NUR ---
CONTINUE TO FOLLOW, SPOKE WITH [facility]. THEY CAN ACCEPT PT LONG THEY GET INSURANCE AUTH, HAVE SUBMITTED IT. MET WITH PT, SHE IS STILL IN AGREEMENT WITH SNF. ADMITS TO BEING ANXIOUS TODAY, NURSE AWARE. WILL FOLLOW
--- NOTE | 2018-10-05 12:18 | NUR ---
ASSUMED CARE OF PATIENT THIS AM AT 0730. PATIENT IS ALERT ORIENTED X 4. SHE DENIES PAIN THIS AM. PATIENT C/O INCREASED ANXIETY. PATIENT MEDICATED FOR ANXIETY. TELE SHOWS SR. PLANS FOR DISCHARGE TO SNF THIS AFTERNOON. NO FALLS OR INJURY.
[2018-10-05] MEDS ORDERED: XANAX 0.25 MG0.25 MG PO (12:27)
[2018-10-05 12:29] VITALS: BP 109/50
[2018-10-05 16:00] VITALS: BP 126/54
[2018-10-05 20:00] VITALS: BP 137/57
[2018-10-06] VITALS: BP 128/48
[2018-10-06 04:00] VITALS: BP 110/43
--- NOTE | 2018-10-06 07:11 | NUR ---
ASSUMED PT CARE AT 1930. NURSING ASSESSMENT COMPLETED AT START OF SHIFT. PT ANXIOUS AND FORGETFUL. CONTINUES TO BE NONCOMPLIANT WITH DIET. ACCU CHECKS Q4H. SR/ST ON ENGINEERING PROFESSOR IN PLACE. HOURLY ROUNDING COMPLETED, CONTINUES TO REFUSE Q2H REPOSITIONING. PT EDUCATION PROVIDED. CALL LIGHT WITHIN REACH.
[2018-10-06 08:00] VITALS: BP 129/48
--- NOTE | 2018-10-06 11:36 | NUR ---
CONTINUE TO FOLLOW, PT TEARFUL THIS AM, STILL WANTING TO GO TO SNF. RECEIVED CALL FROM [facility], PT'S INSURANCE/[employer] HAS DENIED SNF STAY, DR TO DO PEER TO PEER.
[2018-10-06 12:28] VITALS: BP 130/53
[2018-10-06 16:32] VITALS: BP 102/75
--- NOTE | 2018-10-06 18:00 | NUR ---
assumed pt care at 0730, full assesment done as charted. Pt a/o x4, very anxious, on 3l o2, SR-ST on the monitor, all other VSS, pt non compliant with diet, pt educated on eating sugar free snacks, pt requesting ice cream, pudding and juice frequently. Insulin given per OCT. pt up with assist, non compliant with calling for assistance. bed/chair alarm on. CM working with pt on Authorization for senior care, pt updated on plan, verbalized understanding. will continue to monitor
[2018-10-06 20:00] VITALS: BP 128/55
[2018-10-07] VITALS: BP 134/68
[2018-10-07 04:00] VITALS: BP 132/54
--- NOTE | 2018-10-07 05:16 | NUR ---
PATIENT RESTED IN BED, NO ACUTE CHANGES. PATIENT DID NOT SHOW SIGNS OF DISTRESS. FALL PRECAUTIONS IN PLACE, CALL LIGHT WITHIN REACH, HOURLY ROUNDING OBSERVED, BED ALARM ON.
--- NOTE | 2018-10-07 05:36 | NUR ---
PATIENT RESTED IN BED. PATIENT SHOWED SIGNS OF CONFUSION. DOES NOT APPEAR TO BE IN DISTRESS. DOCTOR AYAH NOTIFED OF PATIENT'S BLOOD SUGARS, NO NEW ORDERS. FALL PRECAUTIONS IN PLACE, CALL LIGHT WITHIN REACH, HOURLY ROUNDING OBSERVED, BED ALARM ON.
[2018-10-07 08:00] VITALS: BP 134/56
--- NOTE | 2018-10-07 10:58 | NUR ---
AUTH FOR [facility] HAS BEEN OBTAINED. SPOKE WITH [facility]. THEY WILL ACCEPT PT TODAY, SHE SET UP W/C VAN WITH [facility] FOR 1330. CHART COPIED. ORDERS FAXED TO [facility]. UDPATED PT AND SISTER TRACI OVER THE PHONE. ALSO GAVE TRACI NUMBERS FOR [facility] THAT PT WANTS TO USE AT DC FROM [facility]. RN HAS NUMBER TO CALL REPORT
[2018-10-07] MEDS ORDERED: ARIMIDEX PO (11:50)
[2018-10-07] MEDS ORDERED: COLACE100 MG PO (11:52)
[2018-10-07] MEDS ORDERED: ALBUTEROL2.5 MG/31 INH (11:56)
[2018-10-07] MEDS ORDERED: HUMALOG100 UNIT/1 SUBQ (11:57)
[2018-10-07] MEDS ORDERED: MIRALAX17 GM PO (11:57)
[2018-10-07] MEDS ORDERED: NASAL SPRAY30 ML NASAL (11:59)
[2018-10-07] MEDS ORDERED: PREDNISONE 10 M10 MG PO (12:00)
[2018-10-07] MEDS ORDERED: PULMICORT0.5 MG/22 INH (12:02)
[2018-10-07] MEDS ORDERED: PROTONIX40 M1 PO (12:02)
[2018-10-07] MEDS ORDERED: SINGULAIR 10 MG10 M1 PO (12:03)
[2018-10-07] MEDS ORDERED: AZITHROMYCIN 2250 MG PO (12:03)
[2018-10-07] MEDS ORDERED: ZOFRAN4 MG PO (12:04)
[2018-10-07] MEDS ORDERED: KEFLEX500 M1 PO (12:05)
[2018-10-07 12:09] VITALS: BP 134/56
[2018-10-07 12:36] VITALS: BP 141/48
--- NOTE | 2018-10-07 13:56 | NUR ---
assumed pt care at 0730, full assesment done as charted. pt a/o x4, anxious, up with one assist, VSS, SR on the monitor, pt has area on bottom that is red from excoriation, blanchable, pt educated on turning off bottom and barrior cream applied, pt refuses turns at times. discharge orders recieved, report called to [facility] to [facility] SALGADO. pt left by in [facility] at approx 1345 with transporter.
== END 2018-10-07 13:45 | DRG 597 ==
LOC: M.ERS 20:27 → M.2W 21:34 → M.TBA-ER 21:34 → M.2W 22:39
PROVIDERS: Family Medicine; Internal Medicine; ADMIT Internal Medicine
DX: C50.919 Malignant neoplasm of unspecified site of unspecified female breast (principal); J18.9 Pneumonia, unspecified organism; E11.00 Type 2 diabetes mellitus with hyperosmolarity without nonketotic hyperglycemic-hyperosmolar coma (NKHHC); J96.21 Acute and chronic respiratory failure with hypoxia; E43 Unspecified severe protein-calorie malnutrition; C79.89 Secondary malignant neoplasm of other specified sites; J91.0 Malignant pleural effusion; J44.1 Chronic obstructive pulmonary disease with (acute) exacerbation; J44.0 Chronic obstructive pulmonary disease with (acute) lower respiratory infection; E11.65 Type 2 diabetes mellitus with hyperglycemia; M10.9 Gout, unspecified; F41.9 Anxiety disorder, unspecified; F32.9 Major depressive disorder, single episode, unspecified; E11.22 Type 2 diabetes mellitus with diabetic chronic kidney disease; N18.2 Chronic kidney disease, stage 2 (mild); E11.649 Type 2 diabetes mellitus with hypoglycemia without coma; Z88.8 Allergy status to other drugs, medicaments and biological substances; Z83.6 Family history of other diseases of the respiratory system; Z87.891 Personal history of nicotine dependence; Z68.20 Body mass index [BMI] 20.0-20.9, adult; Z79.899 Other long term (current) drug therapy

== ENCOUNTER 2018-10-25 19:24 | Emergency (ER) | payer OTHER, MEDICAID ==
[~2018-10-25] VITALS: Ht 165.1 cm; Wt 53.1 kg
[~2018-10-25 19:24] MED LIST changes: +ARIMIDEX PO; +AZITHROMYCIN 2250 MG PO; +COLACE100 MG PO; +HUMALOG100 UNIT/1 SUBQ; +KEFLEX500 M1 PO; +NASAL SPRAY30 ML NASAL; +PROTONIX40 M1 PO; +PULMICORT0.5 MG/22 INH; +SINGULAIR 10 MG10 M1 PO; +XANAX 0.25 MG0.25 MG PO; +ZOFRAN4 MG PO
[2018-10-25] MEDS ORDERED: GLIPIZIDE 10 MG10 MG PO (19:37)
[2018-10-25 20:17] LABS: ABSOLUTE NEUTROPHILS 4.5 thou/uL (1.6-8.1); MPV 7.9 fl. (7.2-11.1); RBC 4.04 mil/uL (4.20-5.00)
[2018-10-25 20:20] LABS: ABSOLUTE EOSINOPHILS 0.5 thou/uL (0.0-0.7); ABSOLUTE LYMPHOCYTES 1.3 thou/uL (0.8-5.3); ABSOLUTE MONOCYTES 0.5 thou/uL (0.0-1.2); BASOPHILS 0.6 %; EOSINOPHILS 7.8 %; HEMATOCRIT 36.1 % (37.0-47.0); HEMOGLOBIN 11.9 gm/dL (12.0-15.0); LYMPHOCYTES 19.5 %; MCH 29.3 pg (26.0-34.0); MCHC 32.8 g/dL (28.0-37.0); MCV 89.3 fL (80.0-100.0); MONOCYTES 7.2 %; NUCLEATED RBCS 0 /100WBC; POLYS 64.9 %; RDW-CV 15.4 % (10.5-14.5); WBC 6.9 thou/uL (4.0-11.0)
[2018-10-25 20:33] LABS: ANION GAP 4 mmol/L (7-16); BUN 21 mg/dL (7-18); CALCIUM 9.6 mg/dL (8.5-10.1); CHLORIDE 103 mmol/L (98-107); CO2 32 mmol/L (21-32); CREATININE 0.9 mg/dL (0.6-1.3); GLUCOSE 157 mg/dL (70-99); POTASSIUM 4.1 mmol/L (3.5-5.1); SODIUM 139 mmol/L (136-145); TROPONIN-I LEVEL <0.06 ng/mL (<0.06)
[2018-10-25 20:36] LABS: ALBUMIN 3.1 g/dL (3.4-5.0); ALKALINE PHOSPHATASE 162 U/L (46-116); SGOT 19 U/L (15-37); SGPT 77 U/L (30-65); TOTAL BILIRUBIN 0.3 mg/dL (<0.1-1.0); TOTAL PROTEIN 6.6 g/dL (6.4-8.2)
[2018-10-25 20:44] LABS: PLATELET ESTIMATE ADEQUATE
[2018-10-25 20:45] LABS: PLATELET COUNT* 220 thou/uL (150-400)
[2018-10-25 20:56] LABS: INFLUENZA A ANTIGEN None Detected (None Detect); INFLUENZA B ANTIGEN None Detected (None Detect)
[2018-10-25 22:25] VITALS: BP 136/70
== END 2018-10-25 22:25 | disposition home or self-care (01) ==
LOC: M.ERS 19:24
PROVIDERS: Nurse Practitioner Family
DX: J44.1 Chronic obstructive pulmonary disease with (acute) exacerbation (principal); E11.9 Type 2 diabetes mellitus without complications; M10.9 Gout, unspecified; Z88.6 Allergy status to analgesic agent; Z88.8 Allergy status to other drugs, medicaments and biological substances; Z85.3 Personal history of malignant neoplasm of breast; Z90.49 Acquired absence of other specified parts of digestive tract; Z98.890 Other specified postprocedural states

== ENCOUNTER 2018-10-28 07:21 | Inpatient (IN) | payer OTHER, MEDICAID ==
[~2018-10-28] VITALS: Ht 165.1 cm; Wt 68.0 kg
--- NOTE | ~2018-10-28 | CON ---
[address] [address] CONSULTATION Name: JEFFDevikaNISHANT ZEN Room: [address] ADM IN M.R.#: [id number] Admission: 10/28/18 Attend Phys: Tiffany Alegria MD Discharge: Date of : 45 Report #: [id number] THIS REPORT FOR: //name// CC: Tiffany Salazar REASON FOR CONSULT: Metastatic breast cancer. HISTORY OF PRESENT ILLNESS: The patient is a pleasant 73-year-old female who per the records look like she was diagnosed with a breast cancer in 2012 with lumpectomy and lymph node involvement at [facility], sounds like she declined radiation therapy and any systemic therapy. I also see records she had an axillary biopsy positive in 2014 for recurrent/persistent disease, then there was admission, for which she was seen at [facility] by Dr. Migue Troncoso back in 04/2018. I believe at that time, they thought that they might suggest hormone therapy. I do not believe the patient ever followed up as an outpatient. The patient was then seen by Dr. Prasad in 05/2018. She was admitted for COPD. He was adding Arimidex at that time. The patient was seen by Dr. Kishore Jenkins on 09/29/2018 again with a history of breast cancer. Back in April, she had had pleural effusion with ER/IA positive for cells compatible with breast cancer. She had suggested Arimidex and followup, which the patient has not been seen in our office the last 4-1/2 years. It is unclear whether the patient has taken Arimidex since she left the hospital, I have concerns that she has not been. She does not pay any attention to the left breast mass, says does not know if it is worse or better, it is not ulcerated, it does not bleed. She does not really have any pain or discomfort with it. At this time, she has very poor social support. REVIEW OF SYSTEMS: The patient denies fevers or chills. Does have shortness of air. Does have some coughing. Her appetite is not so good. Does have some general aches and pains. Bowels are somewhat slow to move. No blood in urine or stool that she is aware of. PAST MEDICAL HISTORY: Notable for the breast cancer on the left side from about 2012, local recurrence 2014, probably systemic recurrence with positive pleural effusion in 04/2018 at [place] and then several recent admissions, also history of CVD, diabetes type 2, gout. SOCIAL HISTORY: Has recently lived at either in extended care facility or hotel. She has between 3 and 5 cats, some are calicos. Has about a [id number] history of smoking. 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 CURRENT MEDICATIONS IN THE HOSPITAL: Include insulin, methylprednisolone [address] [place] [address] CONSULTATION Name: NISHANT VENTURA Room: [address] IN .R.#: [id number] Admission: 10/28/18 Attend Phys: Tiffany Alegria MD Discharge: Date of : 45 Report #: [id number] b.i.d. IV, duloxetine 90 daily, IV fluids, anastrozole 1 mg daily, aspirin 81 mg daily, ipratropium and albuterol 3 mL respiratory therapy q.4. She is also on ceftriaxone 1 gram daily, glipizide 10 daily, pantoprazole 40 mg daily, Xanax 0.25 q.6 p.r.n., Singulair 10 mg daily, docusate daily, MiraLax daily. PHYSICAL EXAMINATION: GENERAL: The patient appears her stated age. She is an older female lying in bed. VITAL SIGNS: Height is 5 feet 5 inches or 165.1 cm, weight 155 pounds or 70.53 kilograms, blood pressure 152/79 in right arm, respirations 18, pulse 109, temperature 97.5. HEENT: Face is symmetric. Dentition poor. BREASTS AND LYMPH NODES: No enlarged lymph nodes in the supraclavicular or cervical region. Left breast does have a more cutaneous redness, dry involuted patch with the nipple in the middle, this probably measures approximately about 10 cm or 4 inches across. It is not exactly fixed to the underlying chest wall, but it does not move freely. There are no ulcerations. Then, I feel like there may be some slight lymph nodes palpable in the left axilla. ABDOMEN: Slightly obese, not really tender. No definite masses. EXTREMITIES: Without clubbing, cyanosis. There may be some trace edema. LABORATORY DATA: Includes recent BUN of 20, creatinine of 1.1, total bili 0.2, alk phos 173, albumin 3, AST 14, calcium 9.1, INR 1, D-dimer less than 1.3 back in August. White count 6.5, hemoglobin 10.5, MCV 90.4, RDW 15.2, platelets 236. Differential nonacute. RADIOLOGIC STUDIES: Include recent CT chest PE protocol done this admit that described no pulmonary emboli. Heart is normal. Esophagus is normal. Several mildly enlarged left axillary subpectoral lymph nodes present. Right infrahilar small mass-like density 1.3 cm that is nonspecific. Bilateral pleural effusions are present, small in the right, very small in the left. Venous central lobular emphysema is present. Left breast thickening along with an identifiable mass present. Scattered ill-defined sclerotic foci present, nonspecific, but raised concern for metastatic disease. ASSESSMENT AND PLAN: 1. Locally recurrent and probable metastatic ER/IA positive breast cancer. The patient has only been on Arimidex maybe for the last month and her compliance is questionable, would encourage continued use. The cancer may be driving some of her poor health, but I also think her lung disease and poor compliance with medications including diabetes is probably a large part of her poor health. If the patient was accepting of palliative care, it would be very reasonable. On the other hand, if she wished to continue Arimidex and follow up with our office, we would be happy to see her. 2. Emphysema and possible pneumonitis. Agree with antibiotics. [place] [address] CONSULTATION Name: NISHANT VENTURA Room: [address] IN .R.#: [id number] Admission: 10/28/18 Attend Phys: Tiffany Alegria MD Discharge: Date of : 45 Report #: [id number] 3. Diabetes mellitus type 2. Continue insulin and oral agents. 4. Mood. Continue duloxetine. By: [id number] Friedman MD /luisa
[~2018-10-28 07:21] MED LIST changes: +GLIPIZIDE 10 MG10 MG PO
[2018-10-28 07:22] VITALS: BP 149/80
[2018-10-28 07:54] LABS: ABSOLUTE EOSINOPHILS 0.2 thou/uL (0.0-0.7); ABSOLUTE MONOCYTES 0.4 thou/uL (0.0-1.2); ABSOLUTE NEUTROPHILS 3.2 thou/uL (1.6-8.1); BASOPHILS 0.9 %; EOSINOPHILS 4.5 %; HEMATOCRIT 33.3 % (37.0-47.0); HEMOGLOBIN 11.1 gm/dL (12.0-15.0); LYMPHOCYTES 20.5 %; MCH 29.7 pg (26.0-34.0); MCHC 33.2 g/dL (28.0-37.0); MCV 89.3 fL (80.0-100.0); MPV 7.4 fl. (7.2-11.1); NUCLEATED RBCS 0 /100WBC; PLATELET COUNT* 225 thou/uL (150-400); POLYS 66.1 %; RBC 3.73 mil/uL (4.20-5.00); RDW-CV 15.1 % (10.5-14.5); WBC 4.8 thou/uL (4.0-11.0)
[2018-10-28 08:14] LABS: APTT 27.4 Seconds (25.0-31.3); PROTIME 10.7 Seconds (9.20-11.50)
[2018-10-28 09:33] LABS: POC CA IONIZED 5.1 mg/dL (4.5-5.3); POC CREATININE 0.6 mg/dL (0.6-1.3); POC HEMOGLOBIN 10.9 g/dL (12.0-17.0); POC POTASSIUM 3.9 mmol/L (3.5-4.9)
--- NOTE | 2018-10-28 09:56 | NUR ---
BLANCA NOTIFIED UPON PT RETURN FROM CT AND HE CONNECTED PT TO O2 AND MONITOR
[2018-10-28 10:36] LABS: ALKALINE PHOSPHATASE 173 U/L (46-116); ANION GAP 9 mmol/L (7-16); BUN 14 mg/dL (7-18); CHLORIDE 105 mmol/L (98-107); CO2 28 mmol/L (21-32); CREATININE 0.9 mg/dL (0.6-1.3); GLUCOSE 255 mg/dL (70-99); POTASSIUM 3.4 mmol/L (3.5-5.1); SGOT 14 U/L (15-37); SGPT 51 U/L (30-65); SODIUM 142 mmol/L (136-145); TOTAL BILIRUBIN 0.2 mg/dL (<0.1-1.0); TOTAL PROTEIN 6.2 g/dL (6.4-8.2)
[2018-10-28 11:40] LABS: TROPONIN-I LEVEL <0.06 ng/mL (<0.06)
[2018-10-28 11:41] LABS: NT-PRO BRAIN NAT PEPTIDE 105 pg/mL (<300)
[2018-10-28 12:39] VITALS: BP 156/87
[2018-10-28 13:00] VITALS: BP 190/92
--- NOTE | 2018-10-28 15:39 | EKG ---
[place] [address] ELECTROCARDIOGRAM REPORT Name: LORENZONISHANT ZEN Room: [address] ADM IN .R.#: [id number] Admission: 10/28/18 Attend Phys: Tiffany Alegria MD Discharge: Date of : 45 Report #: [id number] THIS REPORT FOR: //name// [facility] ED Test Date: 2018-10-28 Test Time: 08:08:23 Pat Name: NISHANT VENTURA Department: Room: [facility] Gender: F Linux Vmware Administrator: GIANCARLO : 1945 Requested By: Chace Moyer Order Number: [id number] : Cj Melgoza Measurements Intervals [place] Rate: 105 P: 83 CO: 164 QRS: 57 QRSD: 88 T: 102 QT: 362 QTc: 479 Interpretive Statements Sinus tachycardia Nonspecific T abnormalities, lateral leads Compared to ECG 10/25/2018 20:16:31 No significant changes Electronically Signed On 10-28-2018 15:39:27 DIRECTOR OF INSTITUTIONAL RESEARCH by Cj Melgoza [email or web address] <ELECTRONICALLY SIGNED> By: Cj Melgoza MD, [facility] 10/28/18 [id number] [phone] Cj Melgoza MD, [facility] /EPI
[2018-10-28 15:46] VITALS: BP 166/98
--- NOTE | 2018-10-28 18:52 | NUR ---
RECEIVED REPORT FROM ER. PT ARRIVED TO TELE FLOOR AROUND 1300. PT A&O X4 PLEASANT, BUT ANXIOUS, FORGETFULL AND IMPULSIVE. VSS. O2 SAT >90% ON 3.5L PER NC. BREATHING IS SLIGHTLY LABORED AND PT HAS EXERTIONAL DYSPNEA. ADMISSION ASSESSMENT, HISTORY AND EDUCATION COMPLETED CHARTED. TRANSPLANT REGISTERED NURSE PLACED TRACING ST THIS SHIFT WITH NO CHANGES. PT CHOKED ON PIECE OF MEAT AT LUNCH - DIET CHANGED TO MECHANICAL ALTERED GROUND. PT TOLERATING NEW DIET. PT IS NON-COMPLIANT WITH DIABETIC DIET AND FALL PRECAUTIONS, IMPULSIVE; GETS UP AND SETS BED ALARM OFF DESPITE EDUCATION TO USE CALL LIGHT FOR ASSISTANCE. PT WALKED TO [employer] AND GOT A POP AND CHIPS FROM THE VENDING MACHINE DESPITE EDUCATION ON LIMITING SUGAR INTAKE. PT REFUSED TO WEAR OXYGEN WHEN WALKING TO [employer] - THIS RN INSISTED ON GETTING AN O2 TANK BUT PT REFUSED. PT DID ALLOW TO BE WHEELED IN BACK TO HER ROOM AFTER GETTING HER FOOD. NASAL CANNULA PUT BACK ON. BLOOD GLUCOSE FINGER STICK READING >500, DOCTOR NOTIFIED AND SLIDING SCALE INCREASED TO MODERATE. MEDS PER EMAR. NOTED SMALL SORE TO LEFT BUTTOCK. SKIN TO LEFT BREAST IS RED AND DRY - PT REPORTS ACTIVE BREAST CANCER. PT UP WITH SBA TO BEDSIDE COMMODE OFTEN, VOIDING WITHOUT ISSUE. PT HAS HAD SEVERAL BM'S WELL. PT CURRENTLY RESTING IN BED WATCHING TV. BED ALARM IS ON. CALL LIGHT IS WITHIN REACH. HOURLY ROUNDING PERFORMED. WCTM.
[2018-10-28 20:00] VITALS: BP 156/81
[2018-10-29] VITALS: BP 171/81
[2018-10-29 04:00] VITALS: BP 160/87
--- NOTE | 2018-10-29 05:16 | NUR ---
ASSUMED PT CARE AT 1930. ASSESSMENT COMPLETED CHARTED. ABLE TO MAKE NEEDS KNOWN. PT HAS BEEN UP AND DOWN ALL NIGHT, UPSET ABOUT CANCER DIAGNOSIS, MISSING HER CAT, ABOUT HER SISTER, AND IS VERY ANXIOUS AND WANTED FOOD ALMOST EVERY HOUR. C/O CRAMPING IN HER HANDS. UP AD JACEK TO BSC, UP WITH ASSIST OUTSIDE OF ROOM. WILL CONTINUE TO MONITOR.
[2018-10-29 05:25] LABS: HEMATOCRIT 31.9 % (37.0-47.0); HEMOGLOBIN 10.5 gm/dL (12.0-15.0); MCH 29.7 pg (26.0-34.0); MCHC 32.9 g/dL (28.0-37.0); MCV 90.4 fL (80.0-100.0); MPV 8.6 fl. (7.2-11.1); NUCLEATED RBCS 0 /100WBC; PLATELET COUNT* 236 thou/uL (150-400); RBC 3.53 mil/uL (4.20-5.00); RDW-CV 15.2 % (10.5-14.5); WBC 6.5 thou/uL (4.0-11.0)
[2018-10-29 06:06] LABS: CALCIUM 9.1 mg/dL (8.5-10.1); CREATININE 1.1 mg/dL (0.6-1.3)
[2018-10-29 08:00] VITALS: BP 171/67
[2018-10-29 08:11] LABS: ABSOLUTE LYMPHOCYTES 0.5 thou/uL (0.8-5.3); ABSOLUTE MONOCYTES 0.1 thou/uL (0.0-1.2); ABSOLUTE NEUTROPHILS 5.9 thou/uL (1.6-8.1); PLATELET ESTIMATE ADEQUATE
[2018-10-29 08:12] LABS: MICROCYTES 1+
[2018-10-29 11:31] VITALS: BP 177/82
[2018-10-29 15:40] VITALS: BP 153/79
--- NOTE | 2018-10-29 17:08 | NUR ---
BG LOW. PT GIVEN HALF AB AMP OF D50. PT AWAKE AND ALERT. DR COOLEY NOTIFIED
--- NOTE | 2018-10-29 17:21 | NUR ---
PT UP IN ROOM WITH STEADY GAIT. PT NONCOMPLIANT WITH DIABETIC DIET. BG LABILE. NSR ON MONITOR. TOLERATING PO WELL
[2018-10-29 20:00] VITALS: BP 145/87
[2018-10-30] VITALS: BP 171/96
--- NOTE | 2018-10-30 03:48 | NUR ---
ASSUMED PT CARE AT 1930. ASSESSMENT COMPLETED CHARTED. ABLE TO MAKE NEEDS KNONW. PT HAS BEEN SLEEPING SINCE BEGINNING OF SHIFT, ONLY AWAKE TO TAKE MEDICATION AND BREATHING TX. NO C/O PAIN OR DISCOMFORT. DID ASK FOR BREATHING TREATMENT EARLY DUE TO "STUFFY NOSE". PT RESTING IN BED AT THIS TIME. VSS AND BLOOD SUGARS STABLE. WILL CONTINUE TO MONITOR.
[2018-10-30 04:00] VITALS: BP 140/87
[2018-10-30 08:00] VITALS: BP 146/69
[2018-10-30 08:03] LABS: ABSOLUTE NEUTROPHILS 5.2 thou/uL (1.6-8.1); MPV 7.9 fl. (7.2-11.1)
[2018-10-30 08:04] LABS: ABSOLUTE LYMPHOCYTES 1.1 thou/uL (0.8-5.3); ABSOLUTE MONOCYTES 0.4 thou/uL (0.0-1.2); BASOPHILS 0.3 %; EOSINOPHILS 0.1 %; HEMATOCRIT 32.3 % (37.0-47.0); HEMOGLOBIN 10.4 gm/dL (12.0-15.0); LYMPHOCYTES 16.2 %; MCH 28.9 pg (26.0-34.0); MCHC 32.2 g/dL (28.0-37.0); MCV 89.9 fL (80.0-100.0); MONOCYTES 6.5 %; NUCLEATED RBCS 0 /100WBC; PLATELET COUNT* 210 thou/uL (150-400); POLYS 76.9 %; RDW-CV 15.4 % (10.5-14.5); WBC 6.8 thou/uL (4.0-11.0)
[2018-10-30 08:20] LABS: CALCIUM 9.5 mg/dL (8.5-10.1); POTASSIUM 3.7 mmol/L (3.5-5.1)
[2018-10-30 11:30] VITALS: BP 147/69
[2018-10-30 15:26] VITALS: BP 191/79
--- NOTE | 2018-10-30 17:24 | NUR ---
PT UP IN ROOM WITH STEADY GAIT. REMAINS ON 02@3L NC. PT REPORTS NASAL DRYNESS. TOLERATING PO WELL
[2018-10-30 20:00] VITALS: BP 168/85
[2018-10-31] VITALS: BP 133/74
[2018-10-31 04:00] VITALS: BP 133/99
[2018-10-31 04:53] LABS: ABSOLUTE LYMPHOCYTES 0.5 thou/uL (0.8-5.3); ABSOLUTE MONOCYTES 0.3 thou/uL (0.0-1.2); ABSOLUTE NEUTROPHILS 5.6 thou/uL (1.6-8.1); BASOPHILS 0.1 %; HEMATOCRIT 30.6 % (37.0-47.0); HEMOGLOBIN 10.1 gm/dL (12.0-15.0); LYMPHOCYTES 7.6 %; MCH 29.3 pg (26.0-34.0); MCHC 32.9 g/dL (28.0-37.0); MCV 88.8 fL (80.0-100.0); MPV 8.3 fl. (7.2-11.1); NUCLEATED RBCS 0 /100WBC; PLATELET COUNT* 204 thou/uL (150-400); POLYS 88.3 %; RBC 3.45 mil/uL (4.20-5.00); RDW-CV 14.9 % (10.5-14.5); WBC 6.3 thou/uL (4.0-11.0)
[2018-10-31 05:13] LABS: CALCIUM 9.2 mg/dL (8.5-10.1); POTASSIUM 4.5 mmol/L (3.5-5.1)
--- NOTE | 2018-10-31 05:21 | NUR ---
ASSUMED PT CARE AT 1930. ASSESSMENT COMPLETED CHARTED. ABLE TO MAKE NEEDS KNOWN. DID HAVE SOME TROUBLES BREATHING AT BEGINNING OF SHIFT FROM ANXIETY AND GAVE PRN. NO C/O PAIN OR DISCOMFORT. VSS, PT RESTING IN BED AT THIS TIME. WILL CONTINUE TO MONITOR.
[2018-10-31 07:58] VITALS: BP 158/90
--- NOTE | 2018-10-31 09:40 | NUR ---
ASSUMED CARE OF PT THIS AM AROUND 0715- GRIP ASSEMBLER IN PLACE ORDERED, TRACING ST- UPON ASSESSMENT PT NOTED TO BE RESTING IN BED- PT A&O X4, ANXIOUS AT TIMES- CONTINENT OF BOWEL AND BLADDER- SBA WITH TRANSFERS FOR SAFETY-DIMINISHED LUNG SOUNDS NOTED- RESP EVEN AND LABORED- VSS, O2 SAT 100% ON 3L VIA NC-ABD SOFT/FLAT/NON-TENDER, BS X4 QUADS- LAST BM REPORTED 3-3-18- FAIR PO INTAKE NOTED THIS AM WITH BREAKFAST- BS MONITORED ORDERED, SSI AND SCHEDULED INSULIN PRESCRIBED- IV NOTED TO RIGHT AC INTACT AND SL- PRN XANAX THIS AM FOR NOTED ANXIETY GIVEN- PT DENIES ANY C/O PAIN/DISCOMFORT AT THIS TIME- CALL LIGHT AND PERSONAL BELONGINGS WITH IN REACH- HOURLY ROUNDS IN PLACE R/T SAFETY/NEEDS- ALL NEEDS MET AT THIS TIME-WCTM
[2018-10-31 12:00] VITALS: BP 150/69
--- NOTE | 2018-10-31 15:01 | NUR ---
Pt is A&O. Resides in a motel alone. Known to this CM from previous hospital stays. Pt had a skilled stay at [facility] after last hospital stay. Pt is current with [facility], spoke with Lukasz, they are able to accept Pt back on to their caseload at tx. Per Lukasz, home has been clean. Pt has a walker and home o2 through [employer]. Supportive friend, limited family support. Cm informed Pt that is recommending LTC, Pt adamently refused, stating "I want to try it at home again." Discussed skilled, Pt continued to voice wanting to dc to home with HH. Updated nurse.
[2018-10-31 16:00] VITALS: BP 152/85
--- NOTE | 2018-10-31 16:22 | NUR ---
PT TERE RESTING IN BED, WATCHING TV-TUNNEL ELASTIC OPERATOR ZIGZAG IN PLACE ORDERED, TRACING ST- IV NOTED TO RIGHT AC INTACT AND SL- SOLU-MED DECREASED THIS SHIFT TO 40 MG DAILY- FAIR PO INTAKE NOTED WITH MEALS- FREQUENT SNACKING IN-BETWEEN MEALS NOTED- POOR REQUEST IN FOOD CHOICES NOTED, DESPITE EDUCAITON GIVEN- BS MONITORED ORDERED, INSULIN PRESCRIBED- DENIES ANY C/O PAIN/DISCOMFORT AT THIS TIME- CALL LIGHT AND PERSONAL BELONGINGS WITH IN REACH- HOURLY ROUNDS IN PLACE R/T SAFETY/NEEDS- ALL NEEDS MET AT THIS TIME-WCTM
[2018-10-31 20:00] VITALS: BP 151/76
--- NOTE | 2018-10-31 20:00 | NUR ---
RECEIVED REPORT AND ASSUMED CARE OF PT, ASSESSMENT COMPLETED. SITTING UP IN BED, DYSPNEIC. O2 ON AT 3L/NC. UP TO BSC INDEPENDENTLY, VOIDING WITHOUT DIFFICULTY. TELEMETRY ON SHOWING ST. WILL CONT TO MONITOR AND ASSIST NEEDED.
[2018-11-01] VITALS: BP 127/74
[2018-11-01 04:00] VITALS: BP 155/85
[2018-11-01 04:40] LABS: HEMATOCRIT 35.3 % (37.0-47.0); HEMOGLOBIN 11.6 gm/dL (12.0-15.0); MCH 29.4 pg (26.0-34.0); MCHC 32.9 g/dL (28.0-37.0); MCV 89.4 fL (80.0-100.0); NUCLEATED RBCS 0 /100WBC; PLATELET COUNT* 213 thou/uL (150-400); RBC 3.95 mil/uL (4.20-5.00)
[2018-11-01 05:17] LABS: CALCIUM 9.6 mg/dL (8.5-10.1); POTASSIUM 4.3 mmol/L (3.5-5.1)
--- NOTE | 2018-11-01 05:38 | NUR ---
AWAKE FREQ TONIGHT. SITTING UP FOR BETTER RESP STATUS. O2 REMAINS AT 3L/NC. VOIDING WITHOUT DIFFICULTY PER BSC. TELEMETRY CONT TO SHOW SR TO ST. NO CHANGE IN ASSESSMENT. HS GOAL OF SAFETY ACHIEVED. HOURLY ROUNDING OBSERVED.
[2018-11-01 06:15] LABS: ABSOLUTE LYMPHOCYTES 1.6 thou/uL (0.8-5.3); ABSOLUTE MONOCYTES 0.5 thou/uL (0.0-1.2); ABSOLUTE NEUTROPHILS 6.9 thou/uL (1.6-8.1); ANISOCYTOSIS 1+; PLATELET ESTIMATE ADEQUATE; POIKILOCYTOSIS 1+
[2018-11-01 08:30] VITALS: BP 126/69
[2018-11-01 11:13] VITALS: BP 159/89
--- NOTE | 2018-11-01 11:39 | NUR ---
CM discussed LTC with Pt again, Pt is "considering" but is concerned about where her cats will go and possibly not seeing them again. CM messaged Ashley at [facility], to explore options. Following.
[2018-11-01 15:48] VITALS: BP 127/60
--- NOTE | 2018-11-01 16:04 | NUR ---
ASSUMED PT CARE AT 0700 PT IS ALERT AND ORIENTED X 4 PT DENIES PAIN PT STATES HAS SOA PT IS ON 3L/NC PT KEEPS TAKING OXYGEN OFF THIS NURSE REEDUCATED PT TO KEEP OXYGEN ON SO PT WILL NOT HAVE SOA PT STATES UNDERSTANDING GAVE PT XANAX AND LASIX TO HELP WITH BREATHING, PT IS UP AD JACEK PT IS ST ON THE MONITOR, PT NEEDS REEDUCATION ON OXYGEN, WILL CONTINUE TO MONITOR
[2018-11-01 19:15] VITALS: BP 125/64
--- NOTE | 2018-11-01 23:00 | NUR ---
ASSESSMENT COMPLETED CHARTED. PT PT DENIES PAIN, N/V/D. PT IS UP AD JACEK TO BSC. VSS. SR-ST ON TELEMETRY. HOURLY ROUNDING FOR SAFETY. CLWR
[2018-11-02] VITALS: BP 176/79
[2018-11-02 04:00] VITALS: BP 141/71
[2018-11-02 09:30] VITALS: BP 134/78
[2018-11-02 11:26] VITALS: BP 127/65
--- NOTE | 2018-11-02 14:24 | NUR ---
CM spoke with Pt again regarding LTC, Pt is becoming more open to going to LTC, but will need to get her belongings/affairs in order. Pt plans to contact her friends at the [facility] to see if they will be able to assist. CM to contact Ashley at [facility] to confirm that they have a bed available, awaiting call back. Following.
[2018-11-02 15:25] VITALS: BP 133/59
--- NOTE | 2018-11-02 17:25 | NUR ---
WOUND CARE NOTE: ASSESSMENT FOR PRESSURE ULCER TO THE COCCYX PATIENT PRESENTS WITH A PARTIAL THICKNESS ULCERATION TO THE COCCYX MEASURING 0.2X0.5X0.1. SHELDON-WOUND WITH DRY, FLAKEY SKIN AND BLANCHABLE REDNESS. APPLIED BARRIER OINTMENT. BELIEVE THIS IS A STAGE 2 PRESSURE ULCER. EDUCATED PATIENT ON KEEPING OFF AREA TO PROMOTE HEALING AND USING A WAFFLE CUSHION IF SHE IS UP IN HER CHAIR, COMMUNICATED UNDERSTANDING. ALSO EDUCATED ON USING THE BARRIER OINTMENT TO ASSIST WITH HEALING, COMMUNICATED UNDERSTANDING. RECOMMEND TURN Q2 HOURS, KEEP OFF WOUND LIMIT TIME IN CHAIR WAFFLE CUSHION IF IN CHAIR BARRIER OINTMENT BID AND PRN ENCOURAGE GOOD NUTRTION/HYDRATION LIMIT LAYERS OF LINEN UNDER PATIENT
--- NOTE | 2018-11-02 17:53 | NUR ---
ASSUMED PT CARE AT 0700 PT IS ALERT AND ORIENTED X 4 PT DENIES PAIN OR SOA ON 3L/NC, PT IS ANXIOUS GAVE XANAX THIS AM, PT IS UP AD JACEK TO BEDSIDE COMMODE, ORDERED WAFFLE CUSHION FOR PT BED AND APPLIED TO BED PT IS SITTING ON WAFFLE CUSHION PT TURNS SELF PT WAS EDUCATED TO TUEN TO ELEVATE PRESSURE ON BUTTOCK WHICH PT IS COMPLING, PT IS SR-ST ON THE MONITOR, PT IS PROGRESSING TOWARDS GOALS, WILL CONTINUE TO MONITOR
[2018-11-02 19:00] VITALS: BP 125/66
[2018-11-03] VITALS: BP 134/68
--- NOTE | 2018-11-03 00:16 | NUR ---
ASSESSMENT COMPLETED CHARTED. TRACING ST ON MONITOR. REEDUCATED PT ON DIET, PT VOICES UNDERSTANDING ALTHOUGH REMAINS NON COMPLIANT. VSS. PT C/O ANXIETY, PRN XANAX GIVEN PER EMAR. HOURLY ROUNDING IN PLACE FOR PT SAFETY. CLWR.
[2018-11-03 03:30] VITALS: BP 139/77
[2018-11-03 08:30] VITALS: BP 157/82
--- NOTE | 2018-11-03 10:23 | NUR ---
Received call from [facility], they are able to accept Pt for LTC, if she decides to go.
[2018-11-03 12:02] VITALS: BP 151/78
--- NOTE | 2018-11-03 14:59 | NUR ---
ASSUMED PT CARE AT 0700 PT IS ALERT AND ORIENTED X 4 PT DENIES PAIN PT HAS SOA ON 3L/NC PT IS ANXIOUS GAVE ANXIETY MEDICATIONS AND STEROIDS FOR SOA PT FOUND WALKING HALLWAY WITH OXYGEN REMOVED PT REEDUCATED THE IMPORTANCE OF KEEPING OXYGEN ON PT STATES UNDERSTANDING, PT IS UP AD JACEK TO BEDSIDE COMMODE PT IS NOT A FALL RISK, PT IS ST ON THE MONITOR, PT IS PROGRESSING TOWARDS GOALS, WILL CONTINUE TO MONITOR
[2018-11-03 15:40] VITALS: BP 133/77
[2018-11-03 19:30] VITALS: BP 147/70
--- NOTE | 2018-11-03 23:05 | NUR ---
ASSESSMENT COMPLETED CHARTED. VSS. PT CONTINUES TO BE NON COMPLIANT WITH DIET. REEDUCATED PT ON DIET, VOICES UNDERSTANDING. PT DENIES PAIN. HOURLY EOUNDING FOR PT SAFETY. CLWR.
[2018-11-04] VITALS (7 sets, daily range): BP systolic 141–184; BP diastolic 67–96
--- NOTE | 2018-11-04 07:32 | CON ---
[address] [address] CONSULTATION Name: LORENZONISHANT LEE Room: [address] ADM IN M.R.#: [id number] Admission: 10/28/18 Attend Phys: Tiffany Alegria MD Discharge: Date of : 45 Report #: [id number] THIS REPORT FOR: //name// CC: Maikel Salazar MD DATE OF SERVICE: 11/03/2018 ATTENDING PHYSICIAN: Maikel Song MD. LOCATION: Room 207. The patient is a 73-year-old female, current smoker with multiple medical problems. She is admitted here for shortness of breath about 6 days ago on 10/28/2018. The patient has increasing dry cough, shortness of air when she walks. She has been on oxygen at home for about the last 3 or 4 months. She has been on a nebulizer machine at home for the last 6 or 8 months. She is not really sure when she is steroid dependent. She denies any fever, chills, sweats. She has had some weight loss and feels like she is more short of breath at home. All of her house is on one floor. She does not have to walk upstairs to get to her bedroom. Denies any chest pain or peripheral edema. She has stage 4 metastatic breast cancer and has been seen by Dr. Friedman and Dr. Troncoso's group and also Dr. Jenkins. She denies any esophageal reflux. Denies much in the way of sinus drainage. No hemoptysis at this time. PAST MEDICAL HISTORY: She has had adenocarcinoma of the breast left-sided since 2012, local recurrence 2014, systemic recurrence with positive pleural effusion with adenocarcinoma, which was ER and [place] positive for cells for breast adenocarcinoma in 04/2018. She also has a history of COPD, some coronary artery disease and diabetes mellitus type 2. ALLERGIES: SHE HAS ALLERGIES OR INTOLERANCES FROM DIAZEPAM, HALOPERIDOL, BOTH WHICH GIVES HER NAUSEA AND HEADACHES. MEDICATIONS: Currently, she is on Solu-Medrol 40 mg b.i.d., DuoNeb nebulizers q. 4 hours while awake, Cefdinir 300 mg b.i.d., azithromycin 250 mg daily, Cymbalta 90 mg daily for pain, and K-Phos supplements. Also, sliding scale insulin and enoxaparin 40 mg subcutaneously every bedtime, carvedilol 3.125 mg b.i.d., also on budesonide 0.5 mg b.i.d., montelukast dose is 10 mg daily. FAMILY HISTORY: Negative for cancer or premature cardiopulmonary disease. SOCIAL HISTORY: The patient either lives in an extended care facility [place] [address] CONSULTATION Name: NISHANT VENTURA ZEN Room: [address] IN [facility]#: [id number] Admission: 10/28/18 Attend Phys: Tiffany Alegria MD Discharge: Date of : 45 Report #: [id number] house or hotel. She has 5 cats at home. She has a [id number] history of smoking. She quit about 5 or 6 months ago. 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 Denies any alcohol or illicit drug use. REVIEW OF SYSTEMS: A 14-point review of systems reviewed and noted except for pertinent positives noted in HPI. She has had some weight loss and poor dentition. PHYSICAL EXAMINATION: GENERAL: Thin, frail looking 73-year-old female sitting up at the bedside on 2 liters. VITAL SIGNS: Blood pressure is 150/78, heart rate is 90, respirations 20, saturation on 2 liters is 95% and temperature is 36.5 degrees. She is 5 feet 4 inches tall, weight 68 kilograms or 145 pounds, BMI is 25. HEENT: She has some poor dentition. Pharynx otherwise is clear. NECK: Supple without obvious nodes. She has some shotty lymph nodes at the left cervical and supraclavicular area less than a centimeter it appears, muscle wasting is noted. CHEST: Shows bilateral rhonchi with expiratory wheeze and prolonged expiratory phase. CARDIOVASCULAR: Regular rate and rhythm without murmur, gallop or rub. Heart rate is 92. ABDOMEN: Soft, thin. No masses or megaly. EXTREMITIES: No calf tenderness. No cyanosis, clubbing or edema. Again, loss of musculature and myopathy is noted with 2/5+ muscle strength noted. She can stand and walk on her own, albeit somewhat slowly. NEUROLOGIC: She moves all fours to commands. LABORATORY DATA: From 11/01/2018, hemoglobin is 11.6, white count is 9000 and platelets are 213,000, normal differential. Sodium is 141, potassium is 4.3, bicarbonate is 33, BUN is 27, creatinine is 1.0 and glucose is 94. Chest x-ray and CT of the chest shows COPD, hyperinflation, also has some right hilar lymph nodes that are 1.8 cm and a small right pleural effusion. Has a very much smaller left effusion and again COPD and hyperinflation is noted, some interstitial infiltrates were also noted in the lower lobes as well as pleural thickening on the right. She does have a left breast mass and some left axillary adenopathy seen on CT scan. IMPRESSION: 1. Stage 4 breast adenocarcinoma with left breast mass and also previous malignant right pleural effusion with pleural thickening. 2. Dyspnea, multifactorial. 3. Most likely severe chronic obstructive pulmonary disease, oxygen dependent, may becoming steroid dependent. 4. Progressive breast adenocarcinoma [place] [address] CONSULTATION Name: LORENZONISHANT ZEN Room: [address] IN [facility].#: [id number] Admission: 10/28/18 Attend Phys: Tiffany Alegria MD Discharge: Date of : 45 Report #: [id number] PLAN: We can continue on oral meds and inhaled budesonide. I do not think she needs a repeat tap at least at this time. I am not sure when her last PET scan was, but this appears to be an ongoing malignant process. The patient is a DNR and DNI, which I concur with. She has one sister named, Jennifer, who lives in [place], who I believe is the durable power of director employee communications. The patient actually lived in [place] most of her adult life with her and then when he about 10 years ago, she moved here. She has a 88-[id number] history of smoking. I congratulated her in staying off cigarettes and will continue with oral bronchodilators and then may need prednisone 10 mg every other day at home to see if we can keep her out of the hospital, keep her breathing relatively stable. I am not sure bronchoscopy with biopsy or open lung biopsy would be helpful at this time, most likely its progressive metastatic disease and lymphangitic spread of tumor. Certainly, with malignant pleural effusions, her life expectancy is probably 2-3 months. If she has recurrent effusion or larger effusion at some point in time, a right PleurX catheter may be indicated. The patient does not seem to be very aggressive at least with further therapies at this time. She was supposed to be on Arimidex according to Dr. Friedman's consult, I am not sure if she is taking that. We will see if we can do the best to keep her out of the hospital and keep her comfortable. May need hospice and palliative care at some point in time. Thanks again for allowing us to participate in this challenging lady's care. <ELECTRONICALLY SIGNED> By: Ludwig Clinton MD 11/04/18 0732 [id number] Clinton MD /nt
--- NOTE | 2018-11-04 10:03 | NUR ---
ASSUMED PT CARE AT 0730, PATIENT LYING IN BED, AOX4. O2 SAT AT 94% AT 3L NC. 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 HAD BM TODAY. PT GOAL IS TO FIND PLACEMENT FOR DISCHARGE. PT. SBA, ANXIOUS, DENIES PAIN. PATIENT PASSING FLATUS, ROUND AND SOFT ABDOMEN. AM ASSESSMENT CHARTED, MEDS PER OCT, PT. REPOSITION BY SELF, HOURLY ROUNDING OBSERVED. BED IN LOW POSITION, CALL LIGHT WITHIN REACH. WILL CONTINUE PLAN OF CARE.
--- NOTE | 2018-11-04 11:42 | NUR ---
CM spoke with Pt regarding disposition, Pt plans to dc to home with [facility], so that she can get her affairs in order and plans to go to [facility] once she gets everything taken care of.
--- NOTE | 2018-11-04 17:37 | NUR ---
ASSESSMENT COMPLETED CHARTED. VSS, ONION TIER CONTINUED, PT LYING IN BED, IV INTACT, 02 SAT ON 90'S AT 3L NC. PT USE BEDSIDE COMMODES, ABLE TO WALK W/ NO PROBLEM. PT DENIES ANY PAIN. PT REMINDS TO USE CALL LIGHT FOR HELP, NEW ORDERS RECEIVED FOR PULMONARY TESSALON P, DIAMOX AND GIVEN PRESCRIBED. WILL CONTINUE TO MONITOR.
[2018-11-05 04:00] VITALS: BP 155/83
--- NOTE | 2018-11-05 05:17 | NUR ---
END SHIFT: PT RESTED WELL. NO COMPLAINTS OF PAIN. PT STATED SHE FEELS VERY ANXIOUS. PRN XANAX GIVEN WITH GOOD RESULT. ST ON MONITOR. 3L NC HOME DOSE WITH SATS STAYING IN THE UPPER 90-100 RANGE. STEADY WHEN UP. PLANS FOR DC WITH HOSPICE. SAFETY PRECAUTIONS IN PLACE. VSS. CALL LIGHT IN REACH. WILL CONT TO MONITOR.
[2018-11-05 07:53] VITALS: BP 162/93
[2018-11-05 08:52] LABS: HEMATOCRIT 38.2 % (37.0-47.0); HEMOGLOBIN 12.3 gm/dL (12.0-15.0); MCHC 32.2 g/dL (28.0-37.0); MCV 89.9 fL (80.0-100.0); MPV 7.9 fl. (7.2-11.1); RBC 4.25 mil/uL (4.20-5.00); RDW-CV 14.8 % (10.5-14.5); WBC 13.5 thou/uL (4.0-11.0)
[2018-11-05 09:00] LABS: CREATININE 1.1 mg/dL (0.6-1.3); MAGNESIUM 2.3 mg/dL (1.8-2.4); POTASSIUM 4.3 mmol/L (3.5-5.1)
--- NOTE | 2018-11-05 09:42 | NUR ---
ASSUMED CARE OF PT THIS AM AROUND 07- ROPER OPERATOR IN PLACE ORDERED, TRACING SR- UPON ASSESSMENT PT NOTED TO BE RESTING IN BED, EYES CLOSED- PT A&O X4, ANXIOUS AT TIMES- CONTINENT OF BOWEL AND BLADDER- UP AD-JACEK TO COMMODE AT BED SIDE; SBA WITH AMBULATION- COURSE/EXPIRATORY WHEEZING NOTED, DYSPNEA NOTED ON EXERTION-VSS, O2 SAT 94% ON 3L VIA NC- ABD SOFT/FLAT/NON-TENDER, BS X4 QUADS- PT REPORTS LAST 11/04/18- FAIR PO INTAKE NOTED THIS AM WITH BREAKFAST, BS MONITORED WITH SSI PRESCIBED- IV NOTED TO RIGHT HAND INTACT AND SL- BARRIOR CREAM TO BUTTOCKS INDICATED- PT DENIES ANY C/O PAIN/DISCOMFORT AT THIS TIME- CALL LIGHT AND PERSONAL BELONGINGS WITH IN REACH- HOURLY ROUNDS IN PLACE R/T SAFETY/NEEDS- ALL NEEDS MET AT THIS TIME-WCTM
[2018-11-05 12:00] VITALS: BP 172/85
[2018-11-05 12:09] VITALS: BP 162/93
[2018-11-05] MEDS ORDERED: CEFDINIR300 MG PO (12:25)
[2018-11-05] MEDS ORDERED: ATIVAN0.5 MG PO (12:38)
[2018-11-05] MEDS ORDERED: XANAX 0.25 MG0.25 MG PO (12:39)
[2018-11-05] MEDS ORDERED: MSL20MG/ML PO (12:44)
--- NOTE | 2018-11-05 12:56 | NUR ---
Received order from physician to arrange d/c back to [facility] with [facility]. Spoke with Lalo at [facility] and faxed orders along with copies of prescriptions. Hospice to provide medications. Pt to be given hard copies of prescriptions and will give them hospice today. Called [facility] and they will transport pt between [id number]. [facility] to meet patient at [facility] this afternoon. RN aware of d/c plans. No other needs identified.
[2018-11-05] MEDS ORDERED: TESSALON PERLE100 MG PO (12:57)
[2018-11-05] MEDS ORDERED: TUSSIONEX PENN115 ML PO (12:58)
[2018-11-05] MEDS ORDERED: ALBUTEROL2.5 MG/31 INH (13:02)
[2018-11-05] MEDS ORDERED: ENOXAPARIN40 MG/0.1 SUBQ (13:04)
--- NOTE | 2018-11-05 14:49 | NUR ---
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
== END 2018-11-05 15:45 | disposition hospice, home (50) | DRG 597 ==
LOC: M.ERS 07:21 → M.2W 11:38 → M.TBA-ER 11:38 → M.2W 12:57
PROVIDERS: Emergency Medicine Emergency Medical Services; Family Medicine; Internal Medicine; ADMIT Internal Medicine
DX: C50.912 Malignant neoplasm of unspecified site of left female breast (principal); J96.21 Acute and chronic respiratory failure with hypoxia; E11.00 Type 2 diabetes mellitus with hyperosmolarity without nonketotic hyperglycemic-hyperosmolar coma (NKHHC); J18.9 Pneumonia, unspecified organism; J44.0 Chronic obstructive pulmonary disease with (acute) lower respiratory infection; C78.00 Secondary malignant neoplasm of unspecified lung; J44.1 Chronic obstructive pulmonary disease with (acute) exacerbation; Z66 Do not resuscitate; F41.9 Anxiety disorder, unspecified; Z51.5 Encounter for palliative care; I25.10 Atherosclerotic heart disease of native coronary artery without angina pectoris; E11.65 Type 2 diabetes mellitus with hyperglycemia; R00.0 Tachycardia, unspecified; M10.9 Gout, unspecified; I10 Essential (primary) hypertension; Z90.49 Acquired absence of other specified parts of digestive tract; Z88.6 Allergy status to analgesic agent; Z88.8 Allergy status to other drugs, medicaments and biological substances; Z79.4 Long term (current) use of insulin; Z99.81 Dependence on supplemental oxygen; Z79.899 Other long term (current) drug therapy; Z87.891 Personal history of nicotine dependence; Z83.6 Family history of other diseases of the respiratory system; Z91.19 Patient's noncompliance with other medical treatment and regimen; Z79.84 Long term (current) use of oral hypoglycemic drugs